=== PATIENT | female | born 1970 | race Caucasian/White ===

== ENCOUNTER → 2020-03-12 10:24 | Outpatient (BNVA) | payer MEDICAID, SELFPAY | PROVIDERS: PCP Physician Assistant; Visit Provider Family Medicine Adult Medicine | DX: M47.812 Spondylosis without myelopathy or radiculopathy, cervical region (principal); M51.37 Other intervertebral disc degeneration, lumbosacral region; Z79.899 Other long term (current) drug therapy; Z79.891 Long term (current) use of opiate analgesic | CPT/HCPCS: 99214 ==

== ENCOUNTER → 2020-04-03 11:29 | Outpatient (BNVA) | payer OTHER, SELFPAY | PROVIDERS: PCP Physician Assistant; Referring Provider Physician Assistant; Visit Provider Obstetrics & Gynecology | DX: N92.1 Excessive and frequent menstruation with irregular cycle (principal); D25.9 Leiomyoma of uterus, unspecified | CPT/HCPCS: 99212 ==

== ENCOUNTER → 2020-04-24 13:19 | Outpatient (BNVA) | payer OTHER, SELFPAY | PROVIDERS: PCP Physician Assistant; Referring Provider Physician Assistant; Visit Provider Nurse Practitioner | DX: Z76.89 Persons encountering health services in other specified circumstances (principal) ==

== ENCOUNTER → 2020-05-14 10:36 | Outpatient (BNVA) | payer OTHER, SELFPAY | PROVIDERS: PCP Physician Assistant; Visit Provider Family Medicine Adult Medicine | DX: M47.812 Spondylosis without myelopathy or radiculopathy, cervical region (principal); M51.37 Other intervertebral disc degeneration, lumbosacral region | CPT/HCPCS: 99212 ==

== ENCOUNTER → 2020-07-09 10:08 | Outpatient (BNVA) | payer SELFPAY | PROVIDERS: PCP Physician Assistant; Visit Provider Family Medicine Adult Medicine | DX: M51.37 Other intervertebral disc degeneration, lumbosacral region (principal); M47.812 Spondylosis without myelopathy or radiculopathy, cervical region | CPT/HCPCS: 99212 ==

== ENCOUNTER → 2020-09-03 13:50 | Outpatient (BNVA) | payer OTHER, SELFPAY | PROVIDERS: PCP Physician Assistant; Visit Provider Family Medicine Adult Medicine | DX: M47.812 Spondylosis without myelopathy or radiculopathy, cervical region (principal); M51.37 Other intervertebral disc degeneration, lumbosacral region | CPT/HCPCS: 99212 ==

== ENCOUNTER → 2020-10-29 13:00 | Outpatient (BNVA) | payer OTHER, SELFPAY | PROVIDERS: PCP Physician Assistant; Visit Provider Family Medicine Adult Medicine | DX: M51.37 Other intervertebral disc degeneration, lumbosacral region (principal); M47.812 Spondylosis without myelopathy or radiculopathy, cervical region; M17.10 Unilateral primary osteoarthritis, unspecified knee; Z79.899 Other long term (current) drug therapy | CPT/HCPCS: 99212 ==

== ENCOUNTER → 2020-11-26 12:55 | Outpatient (BNVA) | payer OTHER, SELFPAY | PROVIDERS: PCP Physician Assistant; Visit Provider Family Medicine Adult Medicine | DX: M51.37 Other intervertebral disc degeneration, lumbosacral region (principal); M47.812 Spondylosis without myelopathy or radiculopathy, cervical region; M17.10 Unilateral primary osteoarthritis, unspecified knee | CPT/HCPCS: 99212 ==

== ENCOUNTER 2020-12-24 11:55 | Outpatient (REF) | payer OTHER, SELFPAY ==
--- NOTE | ~2020-12-24 | MM_ITS ---
EXAMINATION: MM SCREENING DIGITAL BREAST TOMOSYNTHESIS, BILATERAL CLINICAL INFORMATION: Screening. Asymptomatic. The lifetime risk of breast cancer based on the Tyrer-Cuzick Model is 6%. COMPARISON: Mammography: 08/17/2019, 02/28/2015 TECHNIQUE: Digital breast tomosynthesis is performed in both the craniocaudal and mediolateral oblique views along with computer-aided detection (CAD). Synthesized 2D images are generated from the tomosynthesis. FINDINGS: There are scattered areas of fibroglandular density (ACR BI-RADS breast composition Category b). Breast parenchymal pattern is similar to prior studies. There is no interval mass or architectural abnormality. The axilla and skin contours are unremarkable. No abnormal calcifications on the right. The left breast has group of approximately 6 calcifications upper outer quadrant likely circularly arranged on MLO view which may suggest fibroadenomatous change. Patient will be recalled for additional magnification views to further characterize. MM/MM tomosynthesis screening BI IMPRESSION: 1. Left: Tight group calcifications left breast mid upper outer quadrant likely peripherally arranged which may suggest fibroadenomatous change. 2. Right: No mammographic evidence of malignancy. ASSESSMENT: BI-RADS 0: Incomplete - Need Additional Imaging Evaluation RECOMMENDATION: 1. Additional views of the left breast (magnification CC, magnification ML). 2. Radiology department staff will contact the patient for additional imaging. This patient's information was entered into a reminder system with a target due date for their next mammogram.
== END 2020-12-24 11:56 | disposition home or self-care (01) ==
LOC: HO.MAMMO 11:55
PROVIDERS: Visit Provider Physician Assistant
DX: Z12.31 Encounter for screening mammogram for malignant neoplasm of breast (principal)
CPT/HCPCS: 77063; 77067; 99212

== ENCOUNTER 2020-12-27 08:30 | Outpatient (REF) | payer OTHER, SELFPAY ==
--- NOTE | ~2020-12-27 | MM_ITS ---
EXAMINATION: MM DIAGNOSTIC DIGITAL MAMMOGRAPHY, LEFT CLINICAL INFORMATION: Recall from screening for tightly grouped calcifications mid left breast upper outer quadrant. COMPARISON: Mammography: 12/24/2020, 08/17/2019, 02/28/2015 TECHNIQUE: Digital mammography is performed in the following views: Magnification CC, magnification ML. FINDINGS: There are scattered areas of fibroglandular density (ACR BI-RADS breast composition Category b). The additional views confirm focal grouped calcifications mid 2:30 o'clock left breast, 10-15 in number. The calcifications vary in size and density. Stereotactic sampling is recommended. Results are discussed with the patient at time of visit. MM/MM added views LT IMPRESSION: Grouped calcifications mid 2:30 o'clock left breast representing change from prior exams. ASSESSMENT: BI-RADS 4: Suspicious (subcategory 4A: Low suspicion for malignancy) RECOMMENDATION: Stereotactic biopsy left breast. This patient's information was entered into a reminder system with a target due date for their next mammogram.
== END 2020-12-27 08:31 | disposition home or self-care (01) ==
LOC: HO.MAMMO 08:30
PROVIDERS: Visit Provider Physician Assistant
DX: R92.1 Mammographic calcification found on diagnostic imaging of breast (principal)
CPT/HCPCS: 77065

== ENCOUNTER → 2020-12-30 08:28 | Outpatient (BNVA) | payer OTHER, SELFPAY | PROVIDERS: PCP Physician Assistant; Referring Provider Physician Assistant; Visit Provider Surgery | DX: R92.1 Mammographic calcification found on diagnostic imaging of breast (principal) | CPT/HCPCS: 99202 ==

== ENCOUNTER 2021-01-07 10:03 | Outpatient (REF) | payer OTHER, SELFPAY ==
--- NOTE | ~2021-01-07 | MM_ITS ---
EXAMINATION: STEREOTACTIC TOMOSYNTHESIS-GUIDED VACUUM-ASSISTED BREAST BIOPSY, LEFT SPECIMEN RADIOGRAPH, LEFT POST PROCEDURE DIGITAL MAMMOGRAM, LEFT CLINICAL INFORMATION: Grouped calcifications left breast which vary in size and attenuation. COMPARISON: Mammography 12/27/2020, 11/24/2020, 08/17/2019. TECHNIQUE/PROCEDURE: Informed consent was obtained from the patient after discussion of the benefits, risks, and alternatives to biopsy today. Patient appeared to understand. Gave opportunity for questions. Patient signed consent form. BIOPSY TABLE: [employer] Affirm Prone Biopsy System. LESION: Tight group of calcifications mid 2:30 o'clock position. LOCAL ANESTHESIA: 7 mL 1% lidocaine; 10 mL 1% lidocaine with epinephrine. DERMATOTOMY: Single skin estevan dermatotomy performed. NEEDLE: Xetaliva 9-gauge vacuum assisted core biopsy device. APPROACH: lateral medial. TARGETING: Digital breast tomosynthesis used for targeting. CORES: 6. CLIP: [employer] Sec[employer] Buckle-shaped marker. SPECIMEN RADIOGRAPH: Specimen radiograph is taken in separate room using digital mammography. The index calcifications are in the excised cores. There are over 10 calcifications grouped in one of the cores. POST PROCEDURE UNILATERAL DIGITAL MAMMOGRAM: The post biopsy mammogram is performed in separate room using separate digital mammography equipment from the biopsy procedure. CC and ML views are obtained. There are scattered areas of fibroglandular density (breast composition category: b). Breast tissue composition borders on heterogeneously dense in the upper outer quadrant. The biopsy clip marker is in position upper outer quadrant. The index calcifications are no longer seen with certainty. There is no gross hematoma. The patient tolerated the procedure well. No immediate complications. Home instructions reviewed with the patient. Final pathology results are pending. MM/MM stereotactic biopsy LT IMPRESSION: 1. Digital tomosynthesis-guided core biopsy left breast with clip placement. 2. Specimen radiograph taken and post procedure mammogram. There is satisfactory positioning of the biopsy clip. 3. Final pathology results pending. An addendum report will be issued.
== END 2021-01-07 10:04 | disposition home or self-care (01) ==
LOC: HO.MAMMO 10:03
PROVIDERS: Visit Provider Surgery
DX: R92.1 Mammographic calcification found on diagnostic imaging of breast (principal)
CPT/HCPCS: 19081; 88305; A4648

== ENCOUNTER 2021-01-09 12:49 | Outpatient (REF) | payer OTHER, SELFPAY ==
[2021-01-09 14:17] LABS: Leukocytes Stool Qualitative NEGATIVE (NEGATIVE)
== END 2021-01-09 12:50 | disposition home or self-care (01) ==
LOC: HO.LNP 12:49
PROVIDERS: Visit Provider Nurse Practitioner Family
DX: R19.5 Other fecal abnormalities (principal)
CPT/HCPCS: 87045; 87046; 89055

== ENCOUNTER → 2021-01-13 09:06 | Outpatient (BNVA) | payer OTHER, SELFPAY | PROVIDERS: PCP Physician Assistant; Visit Provider Surgery | CPT/HCPCS: 99212 ==

== ENCOUNTER → 2021-01-16 12:57 | Outpatient (BNVA) | payer OTHER, SELFPAY | PROVIDERS: PCP Physician Assistant; Visit Provider Student in an Organized Health Care Education/Training Program | DX: R13.10 Dysphagia, unspecified (principal); R76.8 Other specified abnormal immunological findings in serum; I73.00 Raynaud's syndrome without gangrene | CPT/HCPCS: 99202 ==

== ENCOUNTER 2021-01-17 12:19 | Outpatient (REF) | payer OTHER, SELFPAY ==
[2021-01-17 13:22] LABS: MANUAL DIFF FLAG NO
[2021-01-17 13:28] LABS: Basophils Percent Auto 0.5 % (0-2); Eosinophils Absolute Auto 0.1 X10*3/uL (0.0-0.4); Eosinophils Percent Auto 3.2 % (0-4); Hematocrit 36.6 % (37-47); Hemoglobin 12.3 g/dl (12.0-16.0); Imm Gran Abs Auto 0.02 X10*3/uL (0.00-0.03); Imm Gran Pct Auto 0.5 % (0.0-0.4); Lymphocytes Absolute Auto 1.6 X10*3/uL (1.2-4.9); Lymphocytes Percent Auto 36.3 % (20-40); Mean Corpuscular HGB Conc 33.6 g/dl (31.0-35.0); Mean Corpuscular Hemoglobin 31.8 pg (27.0-33.0); Mean Corpuscular Volume 94.6 fL (80-98); Mean Platelet Volume 9.9 fL (9.4-12.3); Monocytes Absolute Auto 0.3 X10*3/uL (0.1-1.2); Monocytes Percent Auto 7.4 % (2-11); Neutrophils Absolute Auto 2.3 X10*3/uL (2.0-8.3); Neutrophils Percent Auto 52.1 % (45-73); Platelet Count 207 X10*3/uL (160-400); Red Blood Count 3.87 X10*6/uL (4.20-5.50); Red Cell Distribution Width 12.9 % (11.0-16.0); White Blood Count 4.3 X10*3/uL (4.8-10.8)
[2021-01-17 13:39] LABS: Glucose Urine UA NEG (NEG); Leukocyte Esterase Urine NEG (NEG); Nitrite Urine NEG (NEG); PH 5.5 (5.0-8.0); Specific Gravity - Urine <= 1.005 (1.005-1.025); Urine Blood NEG (NEG); Urine Ketones NEG (NEG); Urine Protein NEG (NEG-TRACE)
[2021-01-17 13:44] LABS: Appearance Urine CLEAR; Color Urine YELLOW
[2021-01-17 13:53] LABS: Alanine Aminotransferase 18 U/L (0-31); Albumin Level 4.3 g/dL (3.5-5.0); Alkaline Phosphatase 65 U/L (39-117); Anion Gap 13 (12-20); Aspartate Amino Transferase 26 U/L (5-31); Bilirubin Total 0.5 mg/dL (0.0-1.0); Blood Urea Nitrogen 17 mg/dL (9-16); C Reactive Protein 0.15 mg/dL (< or = 0.50); Calcium 9.8 mg/dL (8.4-10.2); Carbon Dioxide 27 mmol/L (22-29); Chloride 108 mmol/L (96-108); Estimated Glomerular Filt Rate > 60; Glucose Random 71 mg/dL (60-115); Potassium 4.7 mmol/L (3.3-5.1); Sodium 143 mmol/L (135-145); Total Protein 6.8 g/dL (6.5-8.0)
[2021-01-17 13:55] LABS: RBC Urine 0-2 /HPF (0); Squamous Epithelial Cell Urine TRACE /LPF; WBC Urine 0-2 /HPF (0-4)
[2021-01-17 14:22] LABS: Erythrocyte Sedimentation Rate 9 MM/HR (0-20)
[2021-01-18 10:36] LABS: Anti DNA DS Antibody 4 IU/mL; Antibody to SS-A Antigen <1.0 NEG AI (<1.0 NEG); Antibody to SS-B Antigen <1.0 NEG AI (<1.0 NEG); SM/Ribonucleoprotein Ab <1.0 NEG AI (<1.0 NEG); Scleroderma 70 Antibody <1.0 NEG AI (<1.0 NEG); Smith Protein <1.0 NEG AI (<1.0 NEG)
[2021-01-18 18:51] LABS: Beta-2 Microglobulin, Serum 2.31 mg/L (< OR = 2.51)
[2021-01-20 13:25] LABS: PTT (LAC) Screen 33 sec (< OR = 40)
[2021-01-20 13:36] LABS: Complement C3 94 mg/dL (83-193)
[2021-01-20 14:32] LABS: Cardiolipin IgG Ab <2.0 GPL-U/mL; Cardiolipin IgM Ab 3.7 MPL-U/mL
[2021-01-21 16:27] LABS: Cyclic Citrullinated Peptide <16 UNITS
== END 2021-01-17 12:20 | disposition home or self-care (01) ==
LOC: HO.LAB 12:19
PROVIDERS: PCP Physician Assistant; Visit Provider Student in an Organized Health Care Education/Training Program
DX: R76.8 Other specified abnormal immunological findings in serum (principal)
CPT/HCPCS: 36415; 80053; 81001; 82232; 85025; 85597; 85613; 85652; 85730; 86140; 86147; 86160; 86200; 86225; 86235

== ENCOUNTER → 2021-01-23 09:59 | Outpatient (BNVA) | payer OTHER, SELFPAY | PROVIDERS: PCP Physician Assistant; Visit Provider Family Medicine Adult Medicine | DX: M51.37 Other intervertebral disc degeneration, lumbosacral region (principal); M47.812 Spondylosis without myelopathy or radiculopathy, cervical region; M17.10 Unilateral primary osteoarthritis, unspecified knee; Z87.891 Personal history of nicotine dependence | CPT/HCPCS: 99212 ==

== ENCOUNTER 2021-01-24 09:54 | Outpatient (REF) | payer OTHER, SELFPAY ==
--- NOTE | ~2021-01-24 | XR_ITS ---
EXAMINATION: XR RIGHT HAND AND RIGHT WRIST XR LEFT HAND AND LEFT WRIST CLINICAL INFORMATION: Hand and wrist pain. COMPARISON: None TECHNIQUE: 4 views right hand and wrist, 4 views left hand and wrist. FINDINGS: RIGHT: The wrist appears normal without fractures or degenerative changes. The hand appears unremarkable aside from degenerative changes at the 1st metacarpal phalangeal joint and the presence of a cystic area at the base of the distal 1st phalanx. LEFT: The wrist appears normal without fractures or degenerative changes. The hand appears unremarkable aside from the presence of a cyst at the base of the distal phalanx of the 1st digit similar to that noted on the right. XR/XR hand wrist LT IMPRESSION: No significant pathology seen aside from some mild degenerative changes at the 1st metacarpal phalangeal joint of the right hand.
--- NOTE | ~2021-01-24 | XR_ITS ---
EXAMINATION: XR RIGHT HAND AND RIGHT WRIST XR LEFT HAND AND LEFT WRIST CLINICAL INFORMATION: Hand and wrist pain. COMPARISON: None TECHNIQUE: 4 views right hand and wrist, 4 views left hand and wrist. FINDINGS: RIGHT: The wrist appears normal without fractures or degenerative changes. The hand appears unremarkable aside from degenerative changes at the 1st metacarpal phalangeal joint and the presence of a cystic area at the base of the distal 1st phalanx. LEFT: The wrist appears normal without fractures or degenerative changes. The hand appears unremarkable aside from the presence of a cyst at the base of the distal phalanx of the 1st digit similar to that noted on the right. XR/XR hand wrist RT IMPRESSION: No significant pathology seen aside from some mild degenerative changes at the 1st metacarpal phalangeal joint of the right hand.
== END 2021-01-24 09:55 | disposition home or self-care (01) ==
LOC: HO.XRAY 09:54
PROVIDERS: PCP Physician Assistant; Visit Provider Physician Assistant
DX: M25.50 Pain in unspecified joint (principal)
CPT/HCPCS: 73110; 73130

== ENCOUNTER → 2021-01-28 07:38 | Outpatient (REF) | payer OTHER, SELFPAY ==
--- NOTE | ~2021-01-28 | XR_ITS ---
EXAMINATION: XR HIP, LEFT CLINICAL INFORMATION: Other specified abnormal immunologic findings. COMPARISON: None TECHNIQUE: AP and frog lateral views of the left hip. FINDINGS: There is no fracture or malalignment. There is minor spurring of the inferomedial left femoral head and superolateral acetabulum. There is no significant joint space narrowing. There is a small rounded lucency with sclerotic margin in the superolateral femoral neck which may represent a normal variant femoral herniation pit. XR/XR hip LT min 2V IMPRESSION: Minor degenerative changes.
--- NOTE | 2021-01-28 07:45 | CA_ITS ---
Transthoracic Echocardiogram Patient (Last, First, Middle): Berenice Berman, Gender: Female Date of : 1970 Age: 50 Procedure Date: 01/28/2021 Procedure Type: Transthoracic Echocardiogram Location: OP Height: 167.64 cm Weight: 63.5 kg BSA: 1.72 m2 Heart Rate: bpm BP: 118 / 60 mmHg Coil Strapper: Referring MD: Margarito Smith MD Quality Compliance Manager: Tomi Otero MD Symptoms: R76.8 - Other specified abnormal immunological findings i... Study Quality: Good ECG Rhythm: Sinus Conclusions: - Normal study Findings Left Ventricle Normal left ventricular size, thickness, and systolic function. The visually estimated ejection fraction is between 60-65%. There is no evidence of regional wall motion abnormalities. Spectral Doppler is indicative of a normal filling pattern. Right Ventricle Normal right ventricular cavity size and systolic function. Atria Both atria are normal in size. There is no evidence of interatrial shunt. Aortic Valve Normal aortic valve structure and function. There is no aortic valve stenosis. There is no aortic valve regurgitation. Mitral Valve Normal mitral valve structure and function. There is trace mitral valve regurgitation. There is no mitral valve stenosis. Pulmonic Valve The pulmonic valve is likely normal. Tricuspid Valve Normal tricuspid valve structure. There is trace tricuspid valve regurgitation. The right ventricular systolic pressure is normal. The right ventricular systolic pressure is 17 mmHg. There is no evidence of pulmonary hypertension. Great Vessels All visible segments of the aorta are normal in size. The pulmonary artery was not well visualized. Venous The inferior vena cava is normal in size and collapses greater than 50% with inspiration. Pericardium/Pleural There is no evidence of pericardial effusion. Prior Study Comparison No prior study available for comparison. Measurements 2D Linear Measurements IVSd: 0.89 0.6-0.9/0.6-1.0 cm LVIDd: 4.57 3.9-5.3/4.2-5.9 cm LVIDd Index: 2.66 2.4-3.2/2.2-3.1 cm/m2 LVIDs: 2.86 2.0-3.6 cm LVPWd: 1.06 0.7-1.1 cm Ao Root: 2.80 2.1-3.5 cm LA Diam: 3.00 2.7-3.8/3.0-4.0 cm LAIDs Index: 1.74 1.5-2.3 cm/m2 LV Mass: 188.99 67-162/88-224 g LV Mass Index: 109.88 43-95/49-115 g/m2 LVOT Diam: 2.10 3.0+(-)1.3 cm Mitral Valve MV Pk E: 0.72 MV PK A: 0.55 MV Decel Time: 179.00 E/A: 1.30 E'Lateral: 14.60 E'Medial: 9.25 E/E' Med: 7.70 E/E' Lat: 4.90 PHT: 53.00 MVA PHT: 4.15 Decel Yates: 3.99 Aortic Valve AoV Pk Jose A: 1.16 AoV Mn Jose A: 0.83 AoV VTI: 0.34 AoV Pk Grad: 5.00 Aov Mn Grad: 3.00 GAYLE Cont.VTI: 2.39 LVOT LVOT Pk Jose A: 0.89 LVOT Mn Jose A: 0.52 LVOT VTI: 0.23 LVOT Pk Grad: 3.00 LVOT Mn Grad: 1.00 LVOT Diam: 2.10 LVOT Area: 3.46 Diastolic Function MV Pk E: 0.72 MV Pk A: 0.55 E/A: 1.30 E'Medial: 9.25 E/E' Med: 7.70 E' Laterial: 14.60 E/E' Lat: 4.90 Tricuspid Valve TR Pk Jose A: 1.85 TR Pk Grad: 14.00 RA Press: 3.00 RVSP: 17.00 Great Vessels Aorta Ao Root-2D: 2.80 2.0-3.7 cm Ao Asc: 2.90 2.1-3.4 cm Pulmonary Valve PV Pk Jose A: 0.79 Peak PV Grad: 2.00 Updated in Other Vendor System with Status of Final Tomi Otero MD electronically signed on 01/28/2021 12:04:25 PM with status of Final
== END ==
LOC: HO.CARD 07:38
PROVIDERS: PCP Internal Medicine; Visit Provider Student in an Organized Health Care Education/Training Program
DX: R76.8 Other specified abnormal immunological findings in serum (principal)
CPT/HCPCS: 73502; 93306

== ENCOUNTER → 2021-02-04 11:00 | Outpatient (BNVA) | payer OTHER, SELFPAY | PROVIDERS: PCP Physician Assistant; Visit Provider Student in an Organized Health Care Education/Training Program ==

== ENCOUNTER → 2021-02-20 10:31 | Outpatient (BNVA) | payer OTHER, SELFPAY | PROVIDERS: Visit Provider Family Medicine Adult Medicine | DX: Z51.81 Encounter for therapeutic drug level monitoring (principal); M51.37 Other intervertebral disc degeneration, lumbosacral region; M47.812 Spondylosis without myelopathy or radiculopathy, cervical region | CPT/HCPCS: 99212 ==

== ENCOUNTER → 2021-03-20 10:55 | Outpatient (BNVA) | payer OTHER, SELFPAY | PROVIDERS: Visit Provider Family Medicine Adult Medicine | DX: Z51.81 Encounter for therapeutic drug level monitoring (principal); M51.37 Other intervertebral disc degeneration, lumbosacral region; M47.812 Spondylosis without myelopathy or radiculopathy, cervical region | CPT/HCPCS: 99212 ==

== ENCOUNTER → 2021-04-17 09:38 | Outpatient (BNVA) | payer OTHER, SELFPAY | PROVIDERS: Visit Provider Family Medicine Adult Medicine | DX: Z51.81 Encounter for therapeutic drug level monitoring (principal); M51.37 Other intervertebral disc degeneration, lumbosacral region; M47.812 Spondylosis without myelopathy or radiculopathy, cervical region | CPT/HCPCS: 99212 ==

== ENCOUNTER 2021-07-03 07:16 | Outpatient (REF) | payer OTHER, SELFPAY ==
[2021-07-03 08:58] LABS: C Reactive Protein 1.29 mg/dL (< or = 0.50)
== END 2021-07-03 07:17 | disposition home or self-care (01) ==
LOC: HO.LAB 07:16
PROVIDERS: PCP Physician Assistant; Referring Provider Physician Assistant; Visit Provider Nurse Practitioner
DX: R19.5 Other fecal abnormalities (principal); R19.7 Diarrhea, unspecified; K59.00 Constipation, unspecified; R13.10 Dysphagia, unspecified; F11.20 Opioid dependence, uncomplicated
CPT/HCPCS: 36415; 86140; 99212

== ENCOUNTER → 2021-07-10 11:14 | Outpatient (BNVA) | payer OTHER, SELFPAY | PROVIDERS: Visit Provider Nurse Practitioner Psychiatric/Mental Health | DX: Z51.81 Encounter for therapeutic drug level monitoring (principal); F11.20 Opioid dependence, uncomplicated | CPT/HCPCS: 80305; 99212 ==

== ENCOUNTER → 2021-08-14 11:49 | Outpatient (BNVA) | payer BC, OTHER, SELFPAY | PROVIDERS: Visit Provider Nurse Practitioner Psychiatric/Mental Health | DX: Z51.81 Encounter for therapeutic drug level monitoring (principal); M51.37 Other intervertebral disc degeneration, lumbosacral region; M47.812 Spondylosis without myelopathy or radiculopathy, cervical region; F11.20 Opioid dependence, uncomplicated | CPT/HCPCS: 80305; 99212 ==

== ENCOUNTER → 2021-09-11 15:52 | Outpatient (BNVA) | payer OTHER, SELFPAY | PROVIDERS: Visit Provider Nurse Practitioner Psychiatric/Mental Health | DX: Z51.81 Encounter for therapeutic drug level monitoring (principal); F11.20 Opioid dependence, uncomplicated | CPT/HCPCS: 99212 ==

== ENCOUNTER → 2021-11-06 09:02 | Outpatient (BNVA) | payer OTHER, SELFPAY | PROVIDERS: Visit Provider Nurse Practitioner Psychiatric/Mental Health | DX: F11.20 Opioid dependence, uncomplicated (principal) | CPT/HCPCS: 80305; 99212 ==

== ENCOUNTER → 2021-11-17 08:19 | Outpatient (BNVA) | payer OTHER, BC, SELFPAY | PROVIDERS: PCP Physician Assistant; Visit Provider Internal Medicine Rheumatology | DX: M17.0 Bilateral primary osteoarthritis of knee (principal); M16.9 Osteoarthritis of hip, unspecified; I73.00 Raynaud's syndrome without gangrene; R76.8 Other specified abnormal immunological findings in serum; Z79.1 Long term (current) use of non-steroidal anti-inflammatories (NSAID) | CPT/HCPCS: 99212 ==

== ENCOUNTER → 2022-01-27 10:15 | Outpatient (BNVA) | payer OTHER, BC, SELFPAY | PROVIDERS: PCP Physician Assistant; Visit Provider Nurse Practitioner Psychiatric/Mental Health | DX: Z51.81 Encounter for therapeutic drug level monitoring (principal); F11.20 Opioid dependence, uncomplicated | CPT/HCPCS: 99212 ==

== ENCOUNTER → 2022-03-17 10:13 | Outpatient (BNVA) | payer BC, OTHER, SELFPAY | PROVIDERS: PCP Physician Assistant; Visit Provider Nurse Practitioner Psychiatric/Mental Health | DX: Z51.81 Encounter for therapeutic drug level monitoring (principal); F11.20 Opioid dependence, uncomplicated | CPT/HCPCS: 80305; 99212 ==

== ENCOUNTER → 2022-05-19 10:03 | Outpatient (BNVA) | payer BC, OTHER, SELFPAY | PROVIDERS: PCP Physician Assistant; Visit Provider Nurse Practitioner Psychiatric/Mental Health | DX: Z51.81 Encounter for therapeutic drug level monitoring (principal); F11.20 Opioid dependence, uncomplicated | CPT/HCPCS: 80305 ==

== ENCOUNTER → 2022-07-14 08:59 | Outpatient (BNVA) | payer OTHER, SELFPAY | PROVIDERS: PCP Physician Assistant; Visit Provider Nurse Practitioner Psychiatric/Mental Health | DX: Z51.81 Encounter for therapeutic drug level monitoring (principal); F11.20 Opioid dependence, uncomplicated; M51.37 Other intervertebral disc degeneration, lumbosacral region; M47.812 Spondylosis without myelopathy or radiculopathy, cervical region ==

== ENCOUNTER → 2022-07-15 08:59 | Outpatient (BNVA) | payer OTHER, SELFPAY | PROVIDERS: PCP Physician Assistant; Visit Provider Nurse Practitioner Psychiatric/Mental Health | DX: F11.20 Opioid dependence, uncomplicated (principal); M51.37 Other intervertebral disc degeneration, lumbosacral region; M47.812 Spondylosis without myelopathy or radiculopathy, cervical region ==

== ENCOUNTER → 2022-09-09 12:52 | Outpatient (BNVA) | payer BC, OTHER, SELFPAY | PROVIDERS: PCP Physician Assistant; Visit Provider Nurse Practitioner Psychiatric/Mental Health | DX: Z51.81 Encounter for therapeutic drug level monitoring (principal); F11.20 Opioid dependence, uncomplicated | CPT/HCPCS: 99212 ==

== ENCOUNTER → 2022-11-03 12:57 | Outpatient (BNVA) | payer BC, OTHER, SELFPAY | PROVIDERS: PCP Physician Assistant; Visit Provider Nurse Practitioner Psychiatric/Mental Health | DX: Z51.81 Encounter for therapeutic drug level monitoring (principal); F11.20 Opioid dependence, uncomplicated | CPT/HCPCS: 80305 ==

== ENCOUNTER 2023-01-05 10:29 | Outpatient (AMB) | payer BC, OTHER, SELFPAY ==
--- NOTE | 2023-01-05 10:35 | MHC.OFFVIS ---
Intake Vital Signs 01/05/23 10:39 BP 122/80 Blood Pressure Location Lt radial Position Sitting Pulse 72 Pulse Source Pulse Oximeter Pulse Oximetry (%) 98 Oxygen Delivery Method Room Air Intake Visit Reasons: MAT Visit Intake Note: the patient presents for a mat visit Failure Analysis Technician Required: No Allergies sumatriptan Adverse Reaction (Unknown, Verified 01/05/23 10:40) Nausea codeine Adverse Reaction (Verified 01/05/23 10:40) Nausea Do you need a note to return to daycare/school/sports/work: No HPI MAT Visit HPI Details Patient presents for follow up Currently prescribed Suboxone 8mg QD back to work, knee pain has improved however she is now experiencing hip pain doing well with suboxone, no concerns at this time [facility], [facility] Medical History Abdominal bloating Breast calcification, left Collapse, lung Pneumothorax Surgical History H/O breast biopsy History of lumpectomy of right breast History of pneumonectomy History of tooth extraction History of total knee arthroplasty Family History Mother Depression COPD (chronic obstructive pulmonary disease) Lung cancer Father No problems noted. 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 Cognitive needs: No Hearing needs: No Vision needs: No Female Reproductive History Menstrual Age of Menarche: 13 Review of Systems Const Reports as per HPI and Reports no additional complaints Physical Exam Vital Signs: Last Vital Signs Pulse 72 01/05/23 10:39 BP 122/80 01/05/23 10:39 Pulse Ox 98 01/05/23 10:39 Oxygen Delivery Method Room Air 01/05/23 10:39 Const General: cooperative, healthy appearing and no acute distress Nutritional Appearance: average body habitus Orientation/consciousness: patient oriented x3 Limitations: no limitations Neuro General: patient oriented x3 Extrem General: Yes normal gait Right lower extremity: knee (right knee slightly swollen) Psych Appearance: well kempt Mental Status: mental status grossly normal Speech and movement: Normal speech and movement present Affect: normal affect Attitude: cooperative Thought process: Normal thought process present Thought content: Normal thought content present Insight: Good insight present (Psych) Judgement: Good judgement present (Psych) Assessment & Plan Assessment & Plan (1) Opioid dependence on agonist therapy: Code(s): F11.20 - Opioid dependence, uncomplicated Plan: follow up 2 months refill to be sent later this month as she recently picked up Coding Level of Care Code Est Pt Level 3 (84683) Diagnoses Opioid dependence on agonist therapy F11.20
[2023-01-05 10:39] VITALS: BP 122/80; PULSE 72; O2SAT 98
== END 2023-01-05 11:07 | disposition home or self-care (01) ==
LOC: HO.HCC 10:29
PROVIDERS: PCP Physician Assistant; Visit Provider Nurse Practitioner Psychiatric/Mental Health
DX: F11.20 Opioid dependence, uncomplicated (principal)
CPT/HCPCS: 99213

== ENCOUNTER → 2023-01-05 10:29 | Outpatient (BNVA) | payer BC, OTHER, SELFPAY | PROVIDERS: PCP Physician Assistant; Visit Provider Nurse Practitioner Psychiatric/Mental Health | DX: Z51.81 Encounter for therapeutic drug level monitoring (principal); F11.20 Opioid dependence, uncomplicated; M51.37 Other intervertebral disc degeneration, lumbosacral region; M47.812 Spondylosis without myelopathy or radiculopathy, cervical region ==

== ENCOUNTER 2023-03-16 11:01 | Outpatient (AMB) | payer BC, OTHER, SELFPAY ==
[2023-03-16 11:06] VITALS: BP 110/72; PULSE 87; O2SAT 97
--- NOTE | 2023-03-16 11:06 | MHC.OFFVIS ---
Intake Vital Signs 03/16/23 11:06 BP 110/72 Blood Pressure Location Lt radial Position Sitting Pulse 87 Pulse Source Pulse Oximeter Pulse Oximetry (%) 97 Oxygen Delivery Method Room Air Intake Visit Reasons: MAT Visit Intake Note: the patient presents for a mat visit Hood Maker Required: No Allergies sumatriptan Adverse Reaction (Unknown, Verified 01/05/23 10:40) Nausea codeine Adverse Reaction (Verified 01/05/23 10:40) Nausea Is last menstrual period known: No HPI MAT Visit HPI Details Patient presents for follow up Currently prescribed Suboxone 8mg Daily Doing well with this dose No questions or concerns at this time [facility] Medical History Abdominal bloating Breast calcification, left Collapse, lung Pneumothorax Surgical History H/O breast biopsy History of lumpectomy of right breast History of pneumonectomy History of tooth extraction History of total knee arthroplasty Family History Mother Depression COPD (chronic obstructive pulmonary disease) Lung cancer Father No problems noted. 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 Cognitive needs: No Hearing needs: No Vision needs: No Female Reproductive History Menstrual Age of Menarche: 13 Review of Systems Const Reports as per HPI and Reports no additional complaints Physical Exam Vital Signs: Last Vital Signs Pulse 87 03/16/23 11:06 BP 110/72 03/16/23 11:06 Pulse Ox 97 03/16/23 11:06 Oxygen Delivery Method Room Air 03/16/23 11:06 Const General: cooperative, healthy appearing and no acute distress Nutritional Appearance: average body habitus Orientation/consciousness: patient oriented x3 Limitations: no limitations Neuro General: patient oriented x3 Extrem General: Yes normal gait Right lower extremity: knee (right knee slightly swollen) Psych Appearance: well kempt Mental Status: mental status grossly normal Speech and movement: Normal speech and movement present Affect: normal affect Attitude: cooperative Thought process: Normal thought process present Thought content: Normal thought content present Insight: Good insight present (Psych) Judgement: Good judgement present (Psych) Assessment & Plan Assessment & Plan (1) Opioid dependence on agonist therapy: Code(s): F11.20 - Opioid dependence, uncomplicated Plan: follow up 2 months continue suboxone at current dose Coding Level of Care Code Est Pt Level 3 (64454) Diagnoses Opioid dependence on agonist therapy F11.20
== END 2023-03-16 11:38 | disposition home or self-care (01) ==
PROVIDERS: PCP Physician Assistant; Visit Provider Nurse Practitioner Psychiatric/Mental Health
DX: F11.20 Opioid dependence, uncomplicated (principal)
CPT/HCPCS: 99213

== ENCOUNTER → 2023-03-16 11:01 | Outpatient (BNVA) | payer BC, OTHER, SELFPAY | PROVIDERS: PCP Physician Assistant; Visit Provider Nurse Practitioner Psychiatric/Mental Health | DX: Z51.81 Encounter for therapeutic drug level monitoring (principal); F11.20 Opioid dependence, uncomplicated; M51.37 Other intervertebral disc degeneration, lumbosacral region; M47.812 Spondylosis without myelopathy or radiculopathy, cervical region ==

== ENCOUNTER 2023-06-01 10:08 | Outpatient (AMB) | payer BC, OTHER, SELFPAY ==
[2023-06-01 10:00] VITALS: BP 130/75; PULSE 77; RESP 20; O2SAT 97
--- NOTE | 2023-06-01 10:19 | MHC.AM.SUB ---
Intake Vital Signs 06/01/23 10:00 BP 130/75 Blood Pressure Location Lt brachial Position Sitting Respiration 20 Pulse 77 Pulse Source Pulse Oximeter Pulse Oximetry (%) 97 Oxygen Delivery Method Room Air Intake Visit Reasons: MAT Visit Allergies sumatriptan Adverse Reaction (Unknown, Verified 01/05/23 10:40) Nausea codeine Adverse Reaction (Verified 01/05/23 10:40) Nausea HPI MAT Visit HPI Details Patient presents for follow up Doing well with current suboxone dose. Would like to start seeing a therapist Reporting depressive sx. Several social stressors PFSH Medical History Abdominal bloating Breast calcification, left Collapse, lung Pneumothorax Surgical History H/O breast biopsy History of lumpectomy of right breast History of pneumonectomy History of tooth extraction History of total knee arthroplasty Family History Mother Depression COPD (chronic obstructive pulmonary disease) Lung cancer Father No problems noted. 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 Cognitive needs: No Hearing needs: No Vision needs: No Female Reproductive History Menstrual Age of Menarche: 13 Review of Systems Const Reports as per HPI Psych Reports depression and Reports anhedonia Physical Exam Vital Signs: Last Vital Signs Pulse 77 06/01/23 10:00 Resp 20 06/01/23 10:00 BP 130/75 06/01/23 10:00 Pulse Ox 97 06/01/23 10:00 Oxygen Delivery Method Room Air 06/01/23 10:00 Const General: cooperative, healthy appearing and no acute distress Nutritional Appearance: average body habitus Orientation/consciousness: patient oriented x3 Limitations: no limitations Neuro General: patient oriented x3 Extrem General: Yes normal gait Right lower extremity: knee (right knee slightly swollen) Psych Appearance: well kempt Mental Status: mental status grossly normal Speech and movement: Normal speech and movement present Affect: Anxious affect present and Depressed mood present Attitude: cooperative Thought process: Normal thought process present Thought content: Normal thought content present Insight: Good insight present (Psych) Judgement: Good judgement present (Psych) Assessment & Plan Assessment & Plan (1) Opioid dependence on agonist therapy: Code(s): F11.20 - Opioid dependence, uncomplicated Plan: continue suboxone at current dose referral sent to [facility] consider antidepressant at next visit Orders: Referrals Counseling Referral F11.20 - Opioid dependence, uncomplicated Coding Level of Care Code Est Pt Level 3 (28631) Diagnoses Opioid dependence on agonist therapy F11.20
== END 2023-06-01 10:55 | disposition home or self-care (01) ==
PROVIDERS: PCP Physician Assistant; Visit Provider Nurse Practitioner Psychiatric/Mental Health
DX: F11.20 Opioid dependence, uncomplicated (principal)
CPT/HCPCS: 99213

== ENCOUNTER → 2023-06-01 10:08 | Outpatient (BNVA) | payer BC, OTHER, SELFPAY | PROVIDERS: PCP Physician Assistant; Visit Provider Nurse Practitioner Psychiatric/Mental Health ==

== ENCOUNTER 2023-07-27 10:21 | Outpatient (AMB) | payer BC, OTHER, SELFPAY ==
[2023-07-27 10:26] VITALS: BP 110/60; PULSE 65; O2SAT 96
--- NOTE | 2023-07-27 10:26 | A.OFFVISCC_ITS ---
Intake Vital Signs 07/27/23 10:26 BP 110/60 Blood Pressure Location Rt brachial Position Sitting Pulse 65 Pulse Source Pulse Oximeter Pulse Oximetry (%) 96 Intake Visit Reasons: MAT Visit Allergies sumatriptan Adverse Reaction (Unknown, Verified 01/05/23 10:40) Nausea codeine Adverse Reaction (Verified 01/05/23 10:40) Nausea HPI MAT Visit HPI Details Patient presents for follow up Currently prescribed Suboxone 8mg daily Doing well with this dose Started therapy yesterday Will go back on Wednesday for follow up appt Discussed mood--patient reporting sadness, low motivation, anhedonia. Discussed medication trial. Patient declines [facility] Medical History Abdominal bloating Breast calcification, left Collapse, lung Pneumothorax Surgical History H/O breast biopsy History of lumpectomy of right breast History of pneumonectomy History of tooth extraction History of total knee arthroplasty Family History Mother Depression COPD (chronic obstructive pulmonary disease) Lung cancer Father No problems noted. 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 Cognitive needs: No Hearing needs: No Vision needs: No Female Reproductive History Menstrual Age of Menarche: 13 Review of Systems Const Reports as per HPI Physical Exam Vital Signs: Last Vital Signs Pulse 65 07/27/23 10:26 BP 110/60 07/27/23 10:26 Pulse Ox 96 07/27/23 10:26 Const General: cooperative, healthy appearing and no acute distress Nutritional Appearance: average body habitus Orientation/consciousness: patient oriented x3 Limitations: no limitations Neuro General: patient oriented x3 Extrem General: Yes normal gait Right lower extremity: knee (right knee slightly swollen) Psych Appearance: well kempt Mental Status: mental status grossly normal Speech and movement: Normal speech and movement present Affect: Anxious affect present and Depressed mood present Attitude: cooperative Thought process: Normal thought process present Thought content: Normal thought content present Insight: Good insight present (Psych) Judgement: Good judgement present (Psych) Results AMB 14 Panel Urine Drug Screen Urine Marijuana (THC) Positive Last Edit by Rupali Neri RN on 07/27/23 10:30 Urine Cocaine Negative Last Edit by Rupali Neri RN on 07/27/23 10:30 Urine Morphine Negative Last Edit by Rupali Neri RN on 07/27/23 10:30 Urine Methamphetamine Negative Last Edit by uRpali Neri RN on 07/27/23 10:30 Urine Amphetamine Negative Last Edit by Rupali Neri RN on 07/27/23 10:30 Urine Benzodiazepine Negative Last Edit by Rupali Neri RN on 07/27/23 10 :30 Urine Barbiturates Negative Last Edit by Rupali Neri RN on 07/27/23 10:3 0 Urine Methadone Negative Last Edit by Rupali Neri RN on 07/27/23 10:30 Urine Buprenorphine Positive Last Edit by Rupali Neri RN on 07/27/23 10: 30 Urine Tricyclic Antidepressant Positive Last Edit by Rupali Neri RN on 07/27/23 10:30 Urine MDMA Negative Last Edit by Rupali Neri RN on 07/27/23 10:30 Urine Oxycodone Negative Last Edit by Rupali Neri RN on 07/27/23 10:30 Urine Phencyclidine Negative Last Edit by Rupali Neri RN on 07/27/23 10: 30 Urine Propoxyphene Negative Last Edit by Rupali Neri RN on 07/27/23 10:3 0 Results Reviewed Results Reviewed: Laboratory Last Values POC Urine Buprenorphine Positive 07/27/23 10:27 POC Urine Morphine Negative 07/27/23 10:27 POC Urine Oxycodone Negative 07/27/23 10:27 POC Urine Methadone Negative 07/27/23 10:27 POC Urine Propoxyphene Negative 07/27/23 10:27 POC Urine Barbiturates Negative 07/27/23 10:27 POC U Tricyclic Antidpr Positive 07/27/23 10:27 POC Urine PCP Negative 07/27/23 10:27 POC Ur Amphetamines Negative 07/27/23 10:27 POC Ur Methamphetamine Negative 07/27/23 10:27 POC Urine MDMA Negative 07/27/23 10:27 POC Ur Benzodiazepine Negative 07/27/23 10:27 POC Urine Cocaine Negative 07/27/23 10:27 POC Ur Marijuana (THC) Positive 07/27/23 10:27 Assessment & Plan Assessment & Plan (1) Opioid dependence on agonist therapy: Code(s): F11.20 - Opioid dependence, uncomplicated Plan: * continue suboxone at current dose * follow up 2 months Orders: Orders AMB 14 Panel Urine Drug Screen Today F11.20 - Opioid dependence, uncomplicated Coding Level of Care Code Est Pt Level 3 (89345) Diagnoses Opioid dependence on agonist therapy F11.20
== END 2023-07-27 11:05 | disposition home or self-care (01) ==
LOC: HO.HCC 10:21
PROVIDERS: PCP Physician Assistant; Visit Provider Nurse Practitioner Psychiatric/Mental Health
DX: F11.20 Opioid dependence, uncomplicated (principal)
CPT/HCPCS: 99213

== ENCOUNTER → 2023-07-27 10:21 | Outpatient (BNVA) | payer BC, OTHER, SELFPAY | PROVIDERS: PCP Physician Assistant; Visit Provider Nurse Practitioner Psychiatric/Mental Health | DX: F11.20 Opioid dependence, uncomplicated (principal) | CPT/HCPCS: 80305 ==

== ENCOUNTER 2023-08-23 10:12 | Outpatient (AMB) | payer BC, OTHER, SELFPAY ==
--- NOTE | 2023-08-23 10:16 | A.OFFPC_ITS ---
Vital Signs 08/23/23 10:20 Height 5 ft 6 in Weight 131 lb 4 oz BMI 21.2 BP 114/76 Blood Pressure Location Lt brachial Position Sitting Respiration 17 Pulse 75 Pulse Source Pulse Oximeter Pulse Oximetry (%) 98 Oxygen Delivery Method Room Air Intake Visit Reasons: AE Intake Note: Patient is here today for a physical. Blender Snuff Required: No Accompanied by: Self / Same As Patient Is last menstrual period known: No Post menopausal: Yes Patient : No Allergies sumatriptan Adverse Reaction (Unknown, Verified 08/23/23 10:33) Nausea codeine Adverse Reaction (Verified 08/23/23 10:33) Nausea Medication List - Last Reconciled 08/23/23 by Michael Galarza PA-C acetaminophen ER (Tylenol Arthritis Pain) 1,300 mg PO Q12H buprenorphine-naloxone 8-2 mg (Suboxone) 1 film sublingual DAILY 30 days cetirizine 10 mg PO DAILY clonidine HCl 0.1 mg PO BEDTIME cyclobenzaprine 10 mg PO TID PRN docusate sodium 100 mg PO Q12H gabapentin 300 mg PO BEDTIME leg brace (Knee Support Brace) As directed multivitamin 1 tab PO DAILY polyethylene glycol 3350 (Miralax) 17 grams PO DAILY PRN rizatriptan 10 mg PO ONCE PRN Tobacco use date assessed: 08/23/23 Dental Screening Dental Screen Date: 08/23/23 Did you have a dental visit in the last 12 months?: No Did you have a dental problem in the last 6 months where you did not have access to dental care?: No Was dental information given to patient?: Patient has dentist HPI AE HPI Details Patient is a 53-year-old female here today for routine annual physical. Patient has a past medical history significant for polyarthritis, opiate dependency. ---Concern--> reports she has been havin g significant right lower extremity cramps worse at night. PLAN: Advised on magnesium supplement and or tonic water before bed. Advised to increase her fluids and electrolytes in her diet. .. Opiate dependency: Continues to follow are [place] addiction treatment program and continues on Suboxone. She plans on slowly weaning off of Suboxone. . Generalized anxiety disorder : Continues to have difficulties anxiety to which he attributes to her marital problems. She does not want to take any medications for anxiety at this time. She has recently started to speak with a mental health therapist. Mammogram: Needs up-to-date mammogram Consumer Lender: Needs an up-to-date Pap Vaccines: Up-to-date with COVID vaccine, considering shingles vaccine, needs new tetanus vaccine, Colon cancer screening: Willing to do cologaurd. [facility] Medical History Breast calcification, left Abdominal bloating Collapse, lung Pneumothorax Surgical History History of total knee arthroplasty History of pneumonectomy H/O breast biopsy History of tooth extraction History of lumpectomy of right breast Family History Mother Depression COPD (chronic obstructive pulmonary disease) Lung cancer Father No problems noted. Other Mental health disorder Social History (Updated 08/23/23 @ 10:37 by Michael Galarza PA-C) Household Members: Spouse and Family Housing: House Are you a primary customer care associate to a significant other at home: No Do you presently have visiting nurse or other home services: No 75 years or older and lives alone: No Alcohol intake: current Alcohol intake frequency: a few times a month Alcohol type: beer Patient Tobacco Use Status: Former Tobacco user Years Smoked: smoked in high school e-Cigarette/Vaping Use: Never Used Second Hand Smoke Exposure: Yes service: No Current occupational status: employed 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 1. Little interest or pleasure in doing things: nearly every day 2. Feeling down, depressed, or hopeless: several days 3. Trouble falling or staying asleep, or sleeping too much: not at all 4. Feeling tired or having little energy: several days 5. Poor appetite or overeating: nearly every day 6. Feeling bad about yourself - or that you are a failure or have let yourself or your family down: not at all 7. Trouble concentrating on things, such as reading the newspaper or watching television: not at all 8. Moving or speaking so slowly that other people could have noticed. Or the opposite - being so fidgety or restless that you have been moving around a lot more than usual: not at all 9. Thoughts that you would be better off or of hurting yourself in some way: not at all Total score: 8 Depression Screening Interpretation: Positive Depression Screening Follow-up: Existing condition and In treatment Depression Screening Done: Yes 70409 - PHQ-9 Billing: Yes Source: Developed by Drs. Daniel Ojeda, Vicky Sweet, Hans Lagos and colleagues, with an educational travis from [employer]. Thrive Questionnaire Date Thrive assessed: 08/23/23 I am a: Patient What is your living situation today?: I have a steady place to live Within the past 12 months, did the food you bought not last and you didn't have the money to get more?: Never true Within the past 12 months, did you worry whether your food would run out before you got money to buy more?: Never true Do you have trouble paying for medicines?: No Do you have trouble getting transportation to medical appointments?: No Do you have trouble paying your heating and electricity bill?: No Do you have trouble taking care of your child, family member or friend?: No Do you have trouble with day-to-day activities such as bathing, preparing meals, shopping, managing finances, etc.?: No Are you currently unemployed and looking for a job?: No Are you interested in more education?: No Please select the resources that you would like help with: None Currently or been in a relationship where the following occur: no concerns reported THRIVE Score: 0 AUDIT C Alcohol Use Questionnaire (AUDIT-C) 1. How often do you have a drink containing alcohol?: Monthly or less 2. How many drinks containing alcohol do you have on a typical day when you are drinking?: 1 or 2 3. How often do you have six or more drinks on one occasion?: Never Total Score: 1 MARIA-7 AMB Questionnaire MARIA-7 Date MARIA - 7 assessed: 08/23/23 Feeling nervous, anxious, or on edge: 3 = Nearly every day Not being able to stop or control worryin = Nearly every day Worrying too much about different things: 3 = Nearly every day Trouble relaxin = Nearly every day Being so restless that it is hard to sit still: 2 = More than half the days Becoming easily annoyed or irritable: 2 = More than half the days Feeling afraid as if something awful might happen: 3 = Nearly every day Total MARIA-7 score (0-4 normal; 5-9 mild; 10-14 moderate; 15-21 severe): 19 Source: Developed by Drs. Daniel Ojeda, Vicky Sweet, Hans Lagos and colleagues, with an educational travis from [employer]. MARIA-7 Assessment Billing MARIA-7 Assessment Tool: MARIA-7 Assessment 82366 Review of Systems Const Denies body aches, Denies chills, Denies excessive sweating, Denies fatigue, Denies fever(s) and Denies headache(s) Eyes Denies blurry vision ENT Denies dysphagia, Denies vertigo, Denies dizziness, Denies headache(s), Denies hearing loss and Denies tinnitus Card Denies chest pain, Denies chest pain with activity, Denies syncope, Denies irregular heart rhythm and Denies dyspnea Resp Denies chest congestion, Denies cough, Denies hemoptysis, Denies dyspnea and Denies wheezing GI Denies abdominal pain, Denies melena, Denies hematochezia, Denies coffee ground emesis, Denies dysphagia, Denies diarrhea, Denies nausea and Denies vomiting Denies urinary frequency, Denies dysuria, Denies urinary hesitancy and Denies urinary urgency Musc Denies arthralgias, Denies limited range of motion, Denies muscle cramps and Denies muscle weakness Skin/Breast Denies rash and Denies skin ulcer Neuro Denies Abnormal speech present, Denies confusion, Denies vertigo, Denies dizziness, Denies syncope, Denies headache(s), Denies memory loss and Denies seizure-like activity Psych Denies anxiety, Denies confusion, Denies depression, Denies memory loss, Denies panic attacks and Denies paranoia Endo Denies excessive sweating, Denies fatigue, Denies flushing, Denies polydipsia and Denies polyuria Aller/Immun Denies wheezing Physical exam (Primary Care) Vital Signs: Last Vital Signs Pulse 75 08/23/23 10:20 Resp 17 08/23/23 10:20 BP 114/76 08/23/23 10:20 Pulse Ox 98 08/23/23 10:20 Oxygen Delivery Method Room Air 08/23/23 10:20 BMI result Body Mass Index 21.2 Tobacco/Smoking Status: Tobacco use Status Tobacco use date assessed 08/23/23 08/23/23 10:28 Patient Tobacco Use Status Former Tobacco user 08/23/23 10:37 e-Cigarette/Vaping Use Never Used 08/23/23 10:37 PHQ-9: PHQ-9 Score PHQ-9: Total score 8 08/23/23 11:00 Depression Screening Interpretation: Positive Depression Screening Follow-up: Existing condition and In treatment Thrive Assessment: Date of Thrive Assessment Date Thrive assessed 08/23/23 08/23/23 10:28 Currently or been in a relationship where the following occur: no concerns reported Const General: cooperative, comfortable, no acute distress, alert and awake; No confusion Orientation/consciousness: oriented to person, oriented to place, patient oriented x3 and No confusion HENMT Head: Yes normocephalic Ears: external ears normal and TM's normal bilaterally Face and sinus: No sinus tenderness Mouth: Normal oral and palatal mucosa present and tongue normal Teeth and gingiva: dentition normal and gingiva normal Throat: Yes posterior oropharynx normal, Yes tonsils normal and Yes uvula midline Eyes Conjunctivae: conjunctivae normal Sclerae: sclerae normal Pupils: Equal, round and reactive pupils present EOM: EOMs intact bilaterally Direct Ophthalmoscopy: No no photophobia Neck Neck: Yes no lymphadenopathy, No tender and Yes no JVD Thyroid: Thyroid normal Carotids: no bruits Chest Chest palpation & inspection: no tenderness Resp Effort & Inspection: normal respiratory effort, no audible wheezes, not labored and no stridor Auscultation: no crackles, no rales, no rhonchi and no wheezes Cardio Jugular venous distension: no JVD Rate: regular rate, not bradycardic and not tachycardic Rhythm: regular rhythm Bruits: no carotid bruits Peripheral pulses: Peripheral pulses 2+ throughout GI Inspection: Yes normal to inspection, No abdominal wall ecchymosis and No visible herniation Palpation (GI): Soft to palpation, nontender, no guarding, not rigid and No hepatosplenomegaly present Auscultation: normoactive bowel sounds General: Yes no CVA tenderness Back/Spine/Pelvis Back: no CVA tenderness and No back tenderness Cervical Spine: cervical ROM normal Thoracic/Lumbar Spine: thoracic and lumbar spine normal to inspection, straight leg raise negative bilaterally, No thoraco-lumbar ROM limited and No lumbar spinal tenderness Skin Lesions: no lesions Rashes: no rashes Wounds: no wounds Neuro General: oriented to person, oriented to place, patient oriented x3, CN's II-XI intact bilaterally and No confusion Cranial nerves: Yes Equal, round and reactive pupils present and Yes Normal accommodation reflex present Cognition (Neuro): normal cognition Speech: No Abnormal speech present Gait exam (Neuro): Normal gait present Motor exam (neuro): 5/5 motor strength present throughout Extrem Right upper extremity: full ROM; no cyanosis Left upper extremity: full ROM; no cyanosis Right lower extremity: no edema Left lower extremity: no edema Psych Appearance: grossly normal Mental Status: mental status grossly normal Affect: normal affect Attitude: cooperative Thought process: Normal thought process present Immunizations Boostrix Tdap 2.5 Lf unit-8 mcg-5 Lf/0.5 mL intramuscular syringe Performing Provider: Michael Galarza PA-C Performing Location: [facility] Administered by: ARCADIO Melendez on 08/23/23 11:00 Dose Route Admin Location Dispensed Lot Number Expiration Date NDC Sweatband Maker 0.5 mL IM Left Deltoid 0.5 mL [id number] 10/02/25 [id number] Solar Flow-Through VIS Given Date VIS Provided VIS Publication Date 08/23/23 Single Vaccine 21 Eligibility Eligibility Date Funding Source Not [facility] Eligible 08/23/23 Private Assessment and Plan Assessment & Plan (1) Annual physical exam: Code(s): Z00.00 - Encounter for general adult medical examination without abnormal findings (2) Breast cancer screening: Code(s): Z12.39 - Encounter for other screening for malignant neoplasm of breast Qualifiers: Breast cancer screening modality: mammogram Qualified Code(s): Z12.31 - Encounter for screening mammogram for malignant neoplasm of breast Plan: Willing to do mammogram (3) MARIA (generalized anxiety disorder): Code(s): F41.1 - Generalized anxiety disorder Plan: Patient reports she has been suffering increased anxiety. She attributes her anxiety to problems with her marital life. She will be starting counseling in near future. She has not interested in any medications for anxiety at this time. (4) Cervical cancer screening: Code(s): Z12.4 - Encounter for screening for malignant neoplasm of cervix Plan: Needs Pap screening (5) Colon cancer screening: Code(s): Z12.11 - Encounter for screening for malignant neoplasm of colon Plan: Interested in Cologuard (6) Screening for diabetes mellitus (DM): Code(s): Z13.1 - Encounter for screening for diabetes mellitus (7) Opioid dependence on agonist therapy: Code(s): F11.20 - Opioid dependence, uncomplicated Plan: Continues to follow [place] [facility] program. Continues to try to wean Suboxone very slowly. (8) Leg cramps: Code(s): R25.2 - Cramp and spasm Plan: Reports having right lower extremity leg cramps\, Advised on tonic water and or magnesium supplementation to use before sleep. Orders: Orders TDaP Immunization Today Z23 - Encounter for immunization Comprehensive [place]. Panel Fast Today Z13.1 - Encounter for screening for diabetes mellitus MM screening mammo BI Today Z12.31 - Encounter for screening mammogram for malignant neoplasm of breast Referrals [facility] [employer] Referral Z12.4 - Encounter for screening for malignant neoplasm of cervix Cologuard Test Z12.11 - Encounter for screening for malignant neoplasm of colon Coding Level of Care Code Est Pt Prev Care 40-64y(73007) Diagnoses Annual physical exam Z00.00 Encounter for screening mammogram for malignant neoplasm of breast Z12.31 Breast cancer screening modality: mammogram MARIA (generalized anxiety disorder) F41.1 Cervical cancer screening Z12.4 Colon cancer screening Z12.11 Screening for diabetes mellitus (DM) Z13.1 Opioid dependence on agonist therapy F11.20 Leg cramps R25.2 Additional Codes MARIA-7 Assessment Billing - MARIA-7 Assessment Tool: MARIA-7 Assessment 67541 ([id number])
[2023-08-23 10:20] VITALS: BP 114/76; PULSE 75; RESP 17; O2SAT 98; BMI 21.2
== END 2023-08-23 11:06 | disposition home or self-care (01) ==
PROVIDERS: PCP Physician Assistant; Visit Provider Physician Assistant
DX: Z00.00 Encounter for general adult medical examination without abnormal findings (principal); F11.20 Opioid dependence, uncomplicated; R25.2 Cramp and spasm; Z23 Encounter for immunization; Z12.31 Encounter for screening mammogram for malignant neoplasm of breast; F41.1 Generalized anxiety disorder; Z12.11 Encounter for screening for malignant neoplasm of colon; Z13.1 Encounter for screening for diabetes mellitus
CPT/HCPCS: 90471; 90715; 99396

== ENCOUNTER 2023-09-13 14:01 | Outpatient (REF) | payer BC, OTHER, SELFPAY ==
--- NOTE | ~2023-09-13 | MM_ITS ---
EXAMINATION: MM SCREENING DIGITAL BREAST TOMOSYNTHESIS, BILATERAL CLINICAL INFORMATION: Screening. Asymptomatic. The patient is status post stereotactic biopsy of calcifications in the upper outer quadrant of the left breast performed in December 2020. On pathology benign findings. A buckle clip was placed in the biopsy bed and there were no residual calcifications from the stereotactic target at that time. COMPARISON: Mammography: This study is compared with prior exams dating back to 2019. TECHNIQUE: Digital breast tomosynthesis is performed in both the craniocaudal and mediolateral oblique views along with computer-aided detection (CAD). Synthesized 2D images are generated from the tomosynthesis. FINDINGS: The breasts are heterogeneously dense, which may obscure small masses (ACR BI-RADS breast composition Category c). There is a buckle shaped tissue marker present in the upper outer quadrant of the left breast from prior benign percutaneous biopsy. There are no calcifications within the stereotactic biopsy bed. Approximately 3 cm posteromedial to the buckle clip are approximately 4 monomorphic, rounded calcifications. These calcifications were not defined on earlier examinations and warrant additional mammographic imaging with magnification. In the right breast, there are no significant masses, abnormal calcifications, or other abnormalities. MM/MM tomosynthesis screening BI IMPRESSION: Left breast calcifications warrant additional mammographic imaging with magnification. No mammographic signs of malignancy right breast. ASSESSMENT: BI-RADS BI-RADS 0 - Incomplete: Needs additional Imaging. RECOMMENDATION: Additional views of the left breast. Radiology department staff will contact the patient for additional imaging. Additional Imaging required This examination should not preclude the clinical evaluation of a suspicious palpable abnormality. This patient's information was entered into a reminder system with a target due date for their next mammogram.
== END 2023-09-13 14:02 | disposition home or self-care (01) ==
LOC: HO.MAMMO 14:01
PROVIDERS: Visit Provider Physician Assistant
DX: Z12.31 Encounter for screening mammogram for malignant neoplasm of breast (principal)
CPT/HCPCS: 77063; 77067

== ENCOUNTER → 2023-09-13 14:15 | Outpatient (BNV) | payer BC, OTHER, SELFPAY | PROVIDERS: Visit Provider Radiology Diagnostic Radiology | DX: Z12.31 Encounter for screening mammogram for malignant neoplasm of breast (principal) | CPT/HCPCS: 77063; 77067 ==

== ENCOUNTER 2023-09-20 14:27 | Outpatient (REF) | payer BC, OTHER, SELFPAY ==
--- NOTE | ~2023-09-20 | US_ITS ---
EXAMINATION: US EXTREMITY, NONVASCULAR CLINICAL INFORMATION: Lump of right leg Localized swelling, mass and lump, right lower limb COMPARISON: None available. TECHNIQUE: Real-time ultrasound the palpable area in the right anterior mid thigh US/US extremity nonvascular FINDINGS/IMPRESSION: Ultrasound over the palpable area in the right anterior mid thigh demonstrates on avascular 4.3 x 0.4 x 3.4 cm focus which is isoechoic to muscle. This is nonspecific in appearance. If of clinical concern, MRI scan could be obtained.
== END 2023-09-20 14:28 | disposition home or self-care (01) ==
LOC: HO.US 14:27
PROVIDERS: PCP Physician Assistant; Visit Provider Physician Assistant
DX: R22.41 Localized swelling, mass and lump, right lower limb (principal)
CPT/HCPCS: 76882

== ENCOUNTER 2023-10-11 10:39 | Outpatient (AMB) | payer BC, SELFPAY ==
[2023-10-11 10:52] VITALS: BP 138/86; PULSE 78; O2SAT 97
--- NOTE | 2023-10-11 10:52 | MHC.AM.SUB ---
Vital Signs 10/11/23 10:52 BP 138/86 Blood Pressure Location Lt brachial Position Sitting Pulse 78 Pulse Source Pulse Oximeter Pulse Oximetry (%) 97 Oxygen Delivery Method Room Air Intake Visit Reasons: MAT Visit Allergies sumatriptan Adverse Reaction (Unknown, Verified 08/23/23 10:33) Nausea codeine Adverse Reaction (Verified 08/23/23 10:33) Nausea HPI HPI MAT Visit: Details: Patient presents for follow up several issues with car still working FT Has not been to therapy in a few weeks--did not feel connected [facility] Medical History Breast calcification, left Abdominal bloating Collapse, lung Pneumothorax Surgical History History of total knee arthroplasty History of pneumonectomy H/O breast biopsy History of tooth extraction History of lumpectomy of right breast Family History Mother Depression COPD (chronic obstructive pulmonary disease) Lung cancer Father No problems noted. 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 Cognitive needs: No Hearing needs: No Vision needs: No Female Reproductive History Menstrual Age of Menarche: 13 Review of Systems Const Reports as per HPI Physical Exam Vital Signs: Last Vital Signs Pulse 78 10/11/23 10:52 BP 138/86 10/11/23 10:52 Pulse Ox 97 10/11/23 10:52 Oxygen Delivery Method Room Air 10/11/23 10:52 Const General: cooperative, healthy appearing and no acute distress Nutritional Appearance: average body habitus Orientation/consciousness: patient oriented x3 Limitations: no limitations Neuro General: patient oriented x3 Extrem General: Yes normal gait Right lower extremity: knee (right knee slightly swollen) Psych Appearance: well kempt Mental Status: mental status grossly normal Speech and movement: Normal speech and movement present Affect: Anxious affect present and Depressed mood present Attitude: cooperative Thought process: Normal thought process present Thought content: Normal thought content present Insight: Good insight present (Psych) Judgement: Good judgement present (Psych) Assessment & Plan Assessment & Plan (1) Opioid dependence on agonist therapy: Code(s): F11.20 - Opioid dependence, uncomplicated Category: Medical Plan: continue suboxone at current dose follow up 2 months listing of therapists mailed to patient to follow up on her own
== END 2023-10-11 11:15 | disposition home or self-care (01) ==
PROVIDERS: PCP Physician Assistant; Visit Provider Nurse Practitioner Psychiatric/Mental Health
DX: F11.20 Opioid dependence, uncomplicated (principal)
CPT/HCPCS: 99213

== ENCOUNTER → 2023-10-11 10:39 | Outpatient (BNVA) | payer BC, SELFPAY | PROVIDERS: PCP Physician Assistant; Visit Provider Nurse Practitioner Psychiatric/Mental Health ==

== ENCOUNTER 2023-10-18 13:48 | Outpatient (REF) | payer BC, SELFPAY ==
--- NOTE | ~2023-10-18 | MM_ITS ---
EXAMINATION: MM DIAGNOSTIC DIGITAL MAMMOGRAPHY, LEFT CLINICAL INFORMATION: Follow-up calcifications seen upper outer left breast, mid to posterior one third. History of benign stereotactic biopsy 01/07/2021. COMPARISON: Mammography: 09/13/2023, 12/24/2020, and dating back to 2014. TECHNIQUE: Digital mammography is performed in the following views: 2-D spot magnification left CC and ML views. FINDINGS: The breasts are heterogeneously dense, which may obscure small masses (ACR BI-RADS breast composition Category c). Diagnostic magnification views demonstrate approximately 4 rounded calcifications in the slightly upper far outer left breast mid to posterior one third. These have a probably benign morphology without evidence of linear forms, branching forms, or significant pleomorphism. There are suitable for six-month follow-up to ensure stability. Results are provided to the patient at time of visit by the technologist. MM/MM added views LT IMPRESSION: Probably benign calcifications upper outer left breast as detailed. Six-month follow-up left mammography recommended to include standard magnification views. ASSESSMENT: BI-RADS BI-RADS 3 - Probably benign finding(s) - 6 month follow-up suggested RECOMMENDATION: 6 Month F/U This patient's information was entered into a reminder system with a target due date for their next mammogram.
== END 2023-10-18 13:49 | disposition home or self-care (01) ==
LOC: HO.MAMMO 13:48
PROVIDERS: PCP Physician Assistant; Visit Provider Physician Assistant
DX: R92.1 Mammographic calcification found on diagnostic imaging of breast (principal)
CPT/HCPCS: 77065

== ENCOUNTER → 2023-10-18 14:00 | Outpatient (BNV) | payer BC, SELFPAY | PROVIDERS: PCP Physician Assistant; Visit Provider Radiology Diagnostic Radiology | DX: R92.1 Mammographic calcification found on diagnostic imaging of breast (principal) | CPT/HCPCS: 77061; 77065 ==

== ENCOUNTER 2023-11-22 10:35 | Outpatient (AMB) | payer BC, SELFPAY ==
--- NOTE | 2023-11-22 15:07 | MHC.AM.SUB ---
Intake Visit Reasons: MAT Visit Allergies sumatriptan Adverse Reaction (Unknown, Verified 08/23/23 10:33) Nausea codeine Adverse Reaction (Verified 08/23/23 10:33) Nausea [facility] HPI MAT Visit: Details: Patient presents for follow up Currently prescribed Suboxone 8mg daily No issues related to medication Denies side effects Discussed depressive sx and challenges at home Reviewed self care [facility] Medical History Breast calcification, left Abdominal bloating Collapse, lung Pneumothorax Surgical History History of total knee arthroplasty History of pneumonectomy H/O breast biopsy History of tooth extraction History of lumpectomy of right breast Family History Mother Depression COPD (chronic obstructive pulmonary disease) Lung cancer Father No problems noted. Other Mental health disorder Social History (Updated 08/23/23 @ 10:37 by Michael Galarza PA-C) Household Members: Spouse and Family Housing: House Are you a primary healthcare business analyst to a significant other at home: No Do you presently have visiting nurse or other home services: No 75 years or older and lives alone: No Alcohol intake: current Alcohol intake frequency: a few times a month Alcohol type: beer Patient Tobacco Use Status: Former Tobacco user Years Smoked: smoked in high school e-Cigarette/Vaping Use: Never Used Second Hand Smoke Exposure: Yes service: No Current occupational status: employed 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 Cognitive needs: No Hearing needs: No Vision needs: No Female Reproductive History Menstrual Age of Menarche: 13 Review of Systems Const Reports as per HPI and Reports no additional complaints Physical Exam Const General: cooperative, healthy appearing and no acute distress Nutritional Appearance: average body habitus Orientation/consciousness: patient oriented x3 Limitations: no limitations Neuro General: patient oriented x3 Extrem General: Yes normal gait Right lower extremity: knee (right knee slightly swollen) Psych Appearance: well kempt Mental Status: mental status grossly normal Speech and movement: Normal speech and movement present Affect: Anxious affect present and Depressed mood present Attitude: cooperative Thought process: Normal thought process present Thought content: Normal thought content present Insight: Good insight present (Psych) Judgement: Good judgement present (Psych) Assessment & Plan Assessment & Plan (1) Opioid dependence on agonist therapy: Code(s): F11.20 - Opioid dependence, uncomplicated Category: Medical Plan: continue subxone at current dose follow up 2 months Medications: Refilled buprenorphine-naloxone 8-2 mg (Suboxone) Pain control 1 film sublingual DAILY 30 ea 1RF 30 days M47.812 - Spondylosis without myelopathy or radiculopathy, cervical region, 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
== END 2023-11-22 11:10 | disposition home or self-care (01) ==
PROVIDERS: PCP Physician Assistant; Visit Provider Nurse Practitioner Psychiatric/Mental Health
DX: F11.20 Opioid dependence, uncomplicated (principal)
CPT/HCPCS: 99213

== ENCOUNTER → 2023-11-22 10:35 | Outpatient (BNVA) | payer BC, SELFPAY | PROVIDERS: PCP Physician Assistant; Visit Provider Nurse Practitioner Psychiatric/Mental Health ==

== ENCOUNTER 2024-01-17 13:15 | Outpatient (AMB) | payer BC, SELFPAY ==
[2024-01-17 13:26] VITALS: BP 140/80; PULSE 65; O2SAT 98
--- NOTE | 2024-01-17 13:26 | A.OFFVISCC_ITS ---
Vital Signs 01/17/24 13:26 BP 140/80 H Blood Pressure Location Lt brachial Position Sitting Pulse 65 Pulse Source Pulse Oximeter Pulse Oximetry (%) 98 Intake Visit Reasons: MAT Visit Allergies sumatriptan Adverse Reaction (Unknown, Verified 08/23/23 10:33) Nausea codeine Adverse Reaction (Verified 08/23/23 10:33) Nausea HPI HPI MAT Visit: Details: Patient presents for follow up Currently prescribed suboxone 8mg QD Reporting she recently fractures ribs due to a fall at work she appears uncomfortable no other issues to report at this time [facility] OF [facility] Medical History Breast calcification, left Abdominal bloating Collapse, lung Pneumothorax Surgical History History of total knee arthroplasty History of pneumonectomy H/O breast biopsy History of tooth extraction History of lumpectomy of right breast Family History Mother Depression COPD (chronic obstructive pulmonary disease) Lung cancer Father No problems noted. Other Mental health disorder Social History (Updated 08/23/23 @ 10:37 by Michael Galarza PA-C) Household Members: Spouse and Family Housing: House Are you a primary landcare officer to a significant other at home: No Do you presently have visiting nurse or other home services: No 75 years or older and lives alone: No Alcohol intake: current Alcohol intake frequency: a few times a month Alcohol type: beer Patient Tobacco Use Status: Former Tobacco user Years Smoked: smoked in high school e-Cigarette/Vaping Use: Never Used Second Hand Smoke Exposure: Yes service: No Current occupational status: employed 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 Cognitive needs: No Hearing needs: No Vision needs: No Female Reproductive History Menstrual Age of Menarche: 13 Review of Systems Const Reports as per HPI Physical Exam Vital Signs: Last Vital Signs Pulse 65 01/17/24 13:26 BP 140/80 H 01/17/24 13:26 Pulse Ox 98 01/17/24 13:26 Const General: cooperative, healthy appearing and no acute distress Nutritional Appearance: average body habitus Orientation/consciousness: patient oriented x3 Limitations: no limitations Neuro General: patient oriented x3 Extrem General: Yes normal gait Right lower extremity: knee (right knee slightly swollen) Psych Appearance: well kempt Mental Status: mental status grossly normal Speech and movement: Normal speech and movement present Affect: Anxious affect present and Depressed mood present Attitude: cooperative Thought process: Normal thought process present Thought content: Normal thought content present Insight: Good insight present (Psych) Judgement: Good judgement present (Psych) Assessment & Plan Assessment & Plan (1) Opioid dependence on agonist therapy: Code(s): F11.20 - Opioid dependence, uncomplicated Category: Medical Plan: * continue subxone at current dose * follow up 2 months Medications: Refilled buprenorphine-naloxone 8-2 mg (Suboxone) Pain control 1 film sublingual DAILY 30 ea 1RF 30 days 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, M47.812 - Spondylosis without myelopathy or radiculopathy, cervical region
== END 2024-01-17 13:52 | disposition home or self-care (01) ==
PROVIDERS: PCP Physician Assistant; Visit Provider Nurse Practitioner Psychiatric/Mental Health
DX: F11.20 Opioid dependence, uncomplicated (principal)
CPT/HCPCS: 99213

== ENCOUNTER → 2024-01-17 13:15 | Outpatient (BNVA) | payer BC, SELFPAY | PROVIDERS: PCP Physician Assistant; Visit Provider Nurse Practitioner Psychiatric/Mental Health | DX: M51.37 Other intervertebral disc degeneration, lumbosacral region (principal); M47.812 Spondylosis without myelopathy or radiculopathy, cervical region ==

== ENCOUNTER 2024-03-27 13:36 | Outpatient (AMB) | payer BC, SELFPAY ==
--- NOTE | 2024-03-27 13:42 | A.OFFVISCC_ITS ---
Intake Visit Reasons: MAT Office Allergies sumatriptan Adverse Reaction (Unknown, Verified 08/23/23 10:33) Nausea codeine Adverse Reaction (Verified 08/23/23 10:33) Nausea [facility] HPI MAT Office: Details: Patient presents for follow up Currently prescribed suboxone 8mg daily No issues related to medication Ribs are feeling back to baseline, some soreness, but overall much improved PFSH Medical History Breast calcification, left Abdominal bloating Collapse, lung Pneumothorax Surgical History History of total knee arthroplasty History of pneumonectomy H/O breast biopsy History of tooth extraction History of lumpectomy of right breast Family History Mother Depression COPD (chronic obstructive pulmonary disease) Lung cancer Father No problems noted. Other Mental health disorder Social History (Updated 08/23/23 @ 10:37 by Michael Galarza PA-C) Household Members: Spouse and Family Housing: House Are you a primary care manager cna to a significant other at home: No Do you presently have visiting nurse or other home services: No 75 years or older and lives alone: No Alcohol intake: current Alcohol intake frequency: a few times a month Alcohol type: beer Patient Tobacco Use Status: Former Tobacco user Years Smoked: smoked in high school e-Cigarette/Vaping Use: Never Used Second Hand Smoke Exposure: Yes service: No Current occupational status: employed 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 Cognitive needs: No Hearing needs: No Vision needs: No Female Reproductive History Menstrual Age of Menarche: 13 Review of Systems Const Reports as per HPI Physical Exam Const General: cooperative, healthy appearing and no acute distress Nutritional Appearance: average body habitus Orientation/consciousness: patient oriented x3 Limitations: no limitations Neuro General: patient oriented x3 Extrem General: Yes normal gait Right lower extremity: knee (right knee slightly swollen) Psych Appearance: well kempt Mental Status: mental status grossly normal Speech and movement: Normal speech and movement present Affect: Anxious affect present and Depressed mood present Attitude: cooperative Thought process: Normal thought process present Thought content: Normal thought content present Insight: Good insight present (Psych) Judgement: Good judgement present (Psych) Assessment & Plan Assessment & Plan (1) Opioid dependence on agonist therapy: Code(s): F11.20 - Opioid dependence, uncomplicated Category: Medical Plan: * continue subxone at current dose * follow up 2 months
== END 2024-03-27 13:45 | disposition home or self-care (01) ==
LOC: HO.HCC 13:37
PROVIDERS: PCP Physician Assistant; Visit Provider Nurse Practitioner Psychiatric/Mental Health
DX: F11.20 Opioid dependence, uncomplicated (principal)
CPT/HCPCS: 99213

== ENCOUNTER → 2024-03-27 13:36 | Outpatient (BNVA) | payer BC, SELFPAY | PROVIDERS: PCP Physician Assistant; Visit Provider Nurse Practitioner Psychiatric/Mental Health ==

== ENCOUNTER 2024-05-15 13:02 | Outpatient (AMB) | payer BC, SELFPAY ==
--- NOTE | 2024-05-15 13:09 | A.OFFVISCC_ITS ---
Intake Visit Reasons: MAT Allergies sumatriptan Adverse Reaction (Unknown, Verified 08/23/23 10:33) Nausea codeine Adverse Reaction (Verified 08/23/23 10:33) Nausea Medication List - Last Reconciled 05/15/24 by Susy Florez CNP buprenorphine-naloxone 8-2 mg (Suboxone) 1 film sublingual DAILY 30 days cetirizine 10 mg PO DAILY clonidine HCl 0.1 mg PO BEDTIME cyclobenzaprine 10 mg PO TID PRN docusate sodium 100 mg PO Q12H gabapentin 300 mg PO BEDTIME leg brace (Knee Support Brace) As directed rizatriptan 10 mg PO ONCE PRN HPI HPI MAT: Details: Patient presents for follow up Currently prescribed Suboxone 8mg daily Doing okay with current dose No issues related to medication Continues to work FT Review of Systems Const Reports as per HPI and Reports no additional complaints Physical Exam Const General: cooperative, healthy appearing and no acute distress Nutritional Appearance: average body habitus Orientation/consciousness: patient oriented x3 Limitations: no limitations Neuro General: patient oriented x3 Extrem General: Yes normal gait Right lower extremity: knee (right knee slightly swollen) Psych Appearance: well kempt Mental Status: mental status grossly normal Speech and movement: Normal speech and movement present Affect: Anxious affect present and Depressed mood present Attitude: cooperative Thought process: Normal thought process present Thought content: Normal thought content present Insight: Good insight present (Psych) Judgement: Good judgement present (Psych) Assessment & Plan Assessment & Plan (1) Opioid dependence on agonist therapy: Code(s): F11.20 - Opioid dependence, uncomplicated Category: Medical Plan: * continue subxone at current dose * follow up 3 months [facility] Medical History Breast calcification, left Abdominal bloating Collapse, lung Pneumothorax Surgical History History of total knee arthroplasty History of pneumonectomy H/O breast biopsy History of tooth extraction History of lumpectomy of right breast Family History Mother Depression COPD (chronic obstructive pulmonary disease) Lung cancer Father No problems noted. Other Mental health disorder Social History (Updated 08/23/23 @ 10:37 by Michael Galarza PA-C) Household Members: Spouse and Family Housing: House Are you a primary care team assistant to a significant other at home: No Do you presently have visiting nurse or other home services: No 75 years or older and lives alone: No Alcohol intake: current Alcohol intake frequency: a few times a month Alcohol type: beer Patient Tobacco Use Status: Former Tobacco user Years Smoked: smoked in high school e-Cigarette/Vaping Use: Never Used Second Hand Smoke Exposure: Yes service: No Current occupational status: employed 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
== END 2024-05-15 13:39 | disposition home or self-care (01) ==
PROVIDERS: PCP Physician Assistant; Visit Provider Nurse Practitioner Psychiatric/Mental Health
DX: F11.20 Opioid dependence, uncomplicated (principal)
CPT/HCPCS: 99213

== ENCOUNTER → 2024-05-15 13:02 | Outpatient (BNVA) | payer BC, SELFPAY | PROVIDERS: PCP Physician Assistant; Visit Provider Nurse Practitioner Psychiatric/Mental Health ==

== ENCOUNTER 2024-06-08 13:05 | Outpatient (REF) | payer BC, SELFPAY ==
--- NOTE | ~2024-06-08 | MM_ITS ---
EXAMINATION: MM DIAGNOSTIC DIGITAL MAMMOGRAPHY, LEFT CLINICAL INFORMATION: 1 year follow-up left breast calcifications. COMPARISON: Mammography: Comparison is made with available prior examinations. TECHNIQUE: Digital mammography is performed in craniocaudal and mediolateral oblique views along with computer-aided detection (CAD). FINDINGS: The breasts are heterogeneously dense, which may obscure small masses (ACR BI-RADS breast composition Category c). 3 punctate calcifications in the upper outer breast posterior depth are not significantly changed from priors on magnification views. No suspicious masses or other abnormal findings. Results are provided to the patient at time of visit by the technologist. MM/MM diagnostic mammo unilat LT IMPRESSION: Punctate calcifications in the upper outer quadrant not significantly changed from prior's. Recommend 6 month follow-up to demonstrate 1 year stability when the patient is due for bilateral mammography. ASSESSMENT: BI-RADS BI-RADS 3 - Probably benign finding(s) - 6 month follow-up suggested RECOMMENDATION: 6 Month F/U This patient's information was entered into a reminder system with a target due date for their next mammogram. Electronically signed by: Gabriela Sorenson DO 06/08/2024 01:43 PM [facility]
== END 2024-06-08 13:06 | disposition home or self-care (01) ==
LOC: HO.MAMMO 13:05
PROVIDERS: PCP Physician Assistant; Visit Provider Physician Assistant
DX: R92.1 Mammographic calcification found on diagnostic imaging of breast (principal)
CPT/HCPCS: 77062; 77065

== ENCOUNTER → 2024-06-08 13:30 | Outpatient (BNV) | payer BC, SELFPAY | PROVIDERS: PCP Physician Assistant; Visit Provider Internal Medicine | DX: R92.1 Mammographic calcification found on diagnostic imaging of breast (principal) | CPT/HCPCS: 77065 ==

== ENCOUNTER 2024-08-24 10:17 | Outpatient (REF) | payer BC, SELFPAY ==
[2024-08-24 11:37] LABS: Hematocrit 41.4 % (37.0-47.0); Mean Corpuscular HGB Conc 33.8 g/dl (31.0-35.0); Mean Corpuscular Hemoglobin 32.6 pg (27.0-33.0); Mean Corpuscular Volume 96.5 fL (80.0-98.0); Mean Platelet Volume 9.2 fL (9.4-12.3); Platelet Count 160 X10*3/uL (160-400); Red Blood Count 4.29 X10*6/uL (4.20-5.50); Red Cell Distribution Width 12.3 % (11.0-16.0); White Blood Count 3.5 X10*3/uL (4.8-10.8)
[2024-08-24 12:23] LABS: Albumin Level 4.2 g/dL (3.5-5.0); Alkaline Phosphatase 111 U/L (39-117); Anion Gap 10 (12-20); Aspartate Amino Transferase 75 U/L (5-31); Bilirubin Total 0.9 mg/dL (0.0-1.0); Blood Urea Nitrogen 13 mg/dL (9-16); Calcium 9.4 mg/dL (8.4-10.2); Carbon Dioxide 28 mmol/L (22-29); Chloride 108 mmol/L (96-108); Estimated Glomerular Filt Rate > 60; Glucose Random 78 mg/dL (60-115); Potassium 4.7 mmol/L (3.3-5.1); Sodium 141 mmol/L (135-145); Total Protein 6.9 g/dL (6.5-8.0)
[2024-08-24 12:37] LABS: Alanine Aminotransferase 54 U/L (0-31)
== END 2024-08-24 10:18 | disposition home or self-care (01) ==
LOC: HO.LAB 10:17
PROVIDERS: PCP Physician Assistant; Visit Provider Physician Assistant
DX: Z00.00 Encounter for general adult medical examination without abnormal findings (principal); F11.20 Opioid dependence, uncomplicated; F41.1 Generalized anxiety disorder; F33.0 Major depressive disorder, recurrent, mild; Z13.1 Encounter for screening for diabetes mellitus
CPT/HCPCS: 36415; 80053; 85027; 96127

== ENCOUNTER 2024-08-24 10:17 | Outpatient (AMB) | payer BC, SELFPAY ==
[2024-08-24 10:20] VITALS: BP 112/76; PULSE 60; TEMP 36.2; O2SAT 98; BMI 21.2
--- NOTE | 2024-08-24 10:20 | MHC.PC.OV ---
Vital Signs 08/24/24 10:20 Height 5 ft 6 in Weight 131 lb 8 oz BMI 21.2 BP 112/76 Blood Pressure Location Lt brachial Position Sitting Pulse 60 Pulse Source Pulse Oximeter Temp 97.1 F Temp Source Temporal Artery Scan Pulse Oximetry (%) 98 Oxygen Delivery Method Room Air Intake Visit Reasons: Annual Exam Cellophane Worker Required: No Accompanied by: Self / Same As Patient Allergies sumatriptan Adverse Reaction (Unknown, Verified 08/24/24 10:38) Nausea codeine Adverse Reaction (Verified 08/24/24 10:38) Nausea Medication List - Last Reconciled 08/24/24 by Michael Galarza PA-C buprenorphine-naloxone 8-2 mg (Suboxone) 1 film sublingual DAILY 30 days cetirizine 10 mg PO DAILY clonidine HCl 0.1 mg PO BEDTIME cyclobenzaprine 10 mg PO TID PRN docusate sodium 100 mg PO Q12H gabapentin 300 mg PO BEDTIME leg brace (Knee Support Brace) As directed rizatriptan 10 mg PO ONCE PRN Tobacco use date assessed: 08/24/24 Dental Screening Dental Screen Date: 08/24/24 Did you have a dental visit in the last 12 months?: Yes Did you have a dental problem in the last 6 months where you did not have access to dental care?: No Was dental information given to patient?: Patient has dentist HPI Annual Exam HPI Details Patient is a 54-year-old female here today for routine annual physical. Patient has a past medical history significant for polyarthritis, generalized anxiety disorder, opiate dependency. ---Concern--> .. Opiate dependency: Continues to follow are [place] addiction treatment program and continues on Suboxone. . Generalized anxiety disorder : Currently, the patient experiences significant anxiety, especially when not in control during car rides, causing her to panic and frequently engage in conflicts with her . She decided to discontinue Ativan due to its potential addictive nature and previous use only after a lung collapse. She is open to the idea of starting new medication for anxiety daily. She is open also to Another mental health therapist. 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 [facility] Medical History Breast calcification, left Abdominal bloating Collapse, lung Pneumothorax Surgical History History of total knee arthroplasty History of pneumonectomy H/O breast biopsy History of tooth extraction History of lumpectomy of right breast Family History Mother Depression COPD (chronic obstructive pulmonary disease) Lung cancer Father No problems noted. Other Mental health disorder Social History (Updated 08/24/24 @ 10:45 by Michael Galarza PA-C) Household Members: Spouse and Family Housing: House Are you a primary healthcare manager to a significant other at home: No Do you presently have visiting nurse or other home services: No 75 years or older and lives alone: No Alcohol intake: current Alcohol intake frequency: a few times a month Alcohol type: beer Patient Tobacco Use Status: Former Tobacco user Years Smoked: smoked in high school e-Cigarette/Vaping Use: Never Used Second Hand Smoke Exposure: Yes service: No Current occupational status: employed 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 1. Little interest or pleasure in doing things: not at all 2. Feeling down, depressed, or hopeless: not at all 3. Trouble falling or staying asleep, or sleeping too much: more than half the days 4. Feeling tired or having little energy: more than half the days 5. Poor appetite or overeating: not at all 6. Feeling bad about yourself - or that you are a failure or have let yourself or your family down: not at all 7. Trouble concentrating on things, such as reading the newspaper or watching television: not at all 8. Moving or speaking so slowly that other people could have noticed. Or the opposite - being so fidgety or restless that you have been moving around a lot more than usual: not at all 9. Thoughts that you would be better off or of hurting yourself in some way: not at all Total score: 4 Depression Screening Interpretation: Positive Depression Screening Follow-up: Existing condition and Community Mental Health Worker F/U Depression Screening Done: Yes 94271 - PHQ-9 Billing: Yes Source: Developed by Drs. Daniel Ojeda, Vicky Sweet, Hans Lagos and colleagues, with an educational travis from [employer]. Thrive Questionnaire Date Thrive assessed: 08/24/24 I am a: Patient What is your living situation today?: I have a steady place to live Within the past 12 months, did the food you bought not last and you didn't have the money to get more?: Never true Within the past 12 months, did you worry whether your food would run out before you got money to buy more?: Never true Do you have trouble paying for medicines?: No Do you have trouble getting transportation to medical appointments?: No Do you have trouble paying your heating and electricity bill?: No Do you have trouble taking care of your child, family member or friend?: No Do you have trouble with day-to-day activities such as bathing, preparing meals, shopping, managing finances, etc.?: No Are you currently unemployed and looking for a job?: Yes Are you interested in more education?: No Please select the resources that you would like help with: None Currently or been in a relationship where the following occur: No concerns reported THRIVE Score: 0 AUDIT C Alcohol Use Questionnaire (AUDIT-C) 1. How often do you have a drink containing alcohol?: 2-4 times a month 2. How many drinks containing alcohol do you have on a typical day when you are drinking?: 1 or 2 3. How often do you have six or more drinks on one occasion?: Never Total Score: 2 MARIA-7 AMB Questionnaire MARIA-7 Date MARIA - 7 assessed: 08/24/24 Feeling nervous, anxious, or on edge: 3 = Nearly every day Not being able to stop or control worryin = More than half the days Worrying too much about different things: 2 = More than half the days Trouble relaxin = More than half the days Being so restless that it is hard to sit still: 1 = Several days Becoming easily annoyed or irritable: 2 = More than half the days Feeling afraid as if something awful might happen: 2 = More than half the days Total MARIA-7 score (0-4 normal; 5-9 mild; 10-14 moderate; 15-21 severe): 14 Source: Developed by Drs. Daniel Ojeda, Vicky Sweet, Hans Lagos and colleagues, with an educational travis from [employer]. MARIA-7 Assessment Billing MARIA-7 Assessment Tool: MARIA-7 Assessment 37725 Review of Systems Const Denies body aches, Denies chills, Denies excessive sweating, Denies fatigue, Denies fever(s) and Denies headache(s) Eyes Denies blurry vision ENT Denies dysphagia, Denies vertigo, Denies dizziness, Denies headache(s), Denies hearing loss and Denies tinnitus Card Denies chest pain, Denies chest pain with activity, Denies syncope, Denies irregular heart rhythm and Denies dyspnea Resp Denies chest congestion, Denies cough, Denies hemoptysis, Denies dyspnea and Denies wheezing GI Denies abdominal pain, Denies melena, Denies hematochezia, Denies coffee ground emesis, Denies dysphagia, Denies diarrhea, Denies nausea and Denies vomiting Denies urinary frequency, Denies dysuria, Denies urinary hesitancy and Denies urinary urgency Musc Denies arthralgias, Denies limited range of motion, Denies muscle cramps and Denies muscle weakness Skin/Breast Denies rash and Denies skin ulcer Neuro Denies Abnormal speech present, Denies confusion, Denies vertigo, Denies dizziness, Denies syncope, Denies headache(s), Denies memory loss and Denies seizure-like activity Psych Denies anxiety, Denies confusion, Denies depression, Denies memory loss, Denies panic attacks and Denies paranoia Endo Denies excessive sweating, Denies fatigue, Denies flushing, Denies polydipsia and Denies polyuria Aller/Immun Denies wheezing Physical exam (Primary Care) Vital Signs: Last Vital Signs Temp 97.1 F 08/24/24 10:20 Pulse 60 08/24/24 10:20 BP 112/76 08/24/24 10:20 Pulse Ox 98 08/24/24 10:20 Oxygen Delivery Method Room Air 08/24/24 10:20 BMI result Body Mass Index 21.2 Tobacco/Smoking Status: Tobacco use Status Tobacco use date assessed 08/24/24 08/24/24 10:30 Patient Tobacco Use Status Former Tobacco user 08/24/24 10:21 e-Cigarette/Vaping Use Never Used 08/24/24 10:21 PHQ-9: PHQ-9 Score PHQ-9: Total score 4 08/24/24 10:30 Depression Screening Interpretation: Positive Depression Screening Follow-up: Existing condition and Community Mental Health Worker F/U Thrive Assessment: Date of Thrive Assessment Date Thrive assessed 08/24/24 08/24/24 10:21 Currently or been in a relationship where the following occur: No concerns reported Const General: cooperative, comfortable, no acute distress, alert and awake; No confusion Orientation/consciousness: oriented to person, oriented to place, patient oriented x3 and No confusion HENMT Head: Yes normocephalic Ears: external ears normal and TM's normal bilaterally Face and sinus: No sinus tenderness Mouth: Normal oral and palatal mucosa present and tongue normal Teeth and gingiva: dentition normal and gingiva normal Throat: Yes posterior oropharynx normal, Yes tonsils normal and Yes uvula midline Eyes Conjunctivae: conjunctivae normal Sclerae: sclerae normal Pupils: Equal, round and reactive pupils present EOM: EOMs intact bilaterally Direct Ophthalmoscopy: No no photophobia Neck Neck: Yes no lymphadenopathy, No tender and Yes no JVD Thyroid: Thyroid normal Carotids: no bruits Chest Chest palpation & inspection: no tenderness Resp Effort & Inspection: normal respiratory effort, no audible wheezes, not labored and no stridor Auscultation: no crackles, no rales, no rhonchi and no wheezes Cardio Jugular venous distension: no JVD Rate: regular rate, not bradycardic and not tachycardic Rhythm: regular rhythm Bruits: no carotid bruits Peripheral pulses: Peripheral pulses 2+ throughout GI Inspection: Yes normal to inspection, No abdominal wall ecchymosis and No visible herniation Palpation (GI): Soft to palpation, nontender, no guarding, not rigid and No hepatosplenomegaly present Auscultation: normoactive bowel sounds General: Yes no CVA tenderness Back/Spine/Pelvis Back: no CVA tenderness and No back tenderness Cervical Spine: cervical ROM normal Thoracic/Lumbar Spine: thoracic and lumbar spine normal to inspection, straight leg raise negative bilaterally, No thoraco-lumbar ROM limited and No lumbar spinal tenderness Skin Lesions: no lesions Rashes: no rashes Wounds: no wounds Neuro General: oriented to person, oriented to place, patient oriented x3, CN's II-XI intact bilaterally and No confusion Cranial nerves: Yes Equal, round and reactive pupils present and Yes Normal accommodation reflex present Cognition (Neuro): normal cognition Speech: No Abnormal speech present Gait exam (Neuro): Normal gait present Motor exam (neuro): 5/5 motor strength present throughout Extrem Right upper extremity: full ROM; no cyanosis Left upper extremity: full ROM; no cyanosis Right lower extremity: no edema Left lower extremity: no edema Psych Appearance: grossly normal Mental Status: mental status grossly normal Affect: normal affect Attitude: cooperative Thought process: Normal thought process present Coding Level of Care Code Est Pt Prev Care 40-64y(68480) Diagnoses Annual physical exam Z00.00 Opioid dependence on agonist therapy F11.20 MARIA (generalized anxiety disorder) F41.1 Screening for diabetes mellitus (DM) Z13.1 Mild episode of recurrent major depressive disorder F33.0 Major depression episode severity: mild Additional Codes MARIA-7 Assessment Billing - MARIA-7 Assessment Tool: MARIA-7 Assessment 48906 ([id number]) PHQ-9 - 35060 - PHQ-9 Billing: Yes ([id number]) Assessment & Plan Assessment & Plan (1) Annual physical exam: Code(s): Z00.00 - Encounter for general adult medical examination without abnormal findings Category: Medical Plan: As per HPI (2) Opioid dependence on agonist therapy: Code(s): F11.20 - Opioid dependence, uncomplicated Category: Medical Plan: Patient continues to follow comprehensive treatment center here in [place]. She continues on Suboxone with good effect. (3) MARIA (generalized anxiety disorder): Code(s): F41.1 - Generalized anxiety disorder Category: Medical Plan: Patient maria 7 score positive for moderate to severe anxiety. Initiate Buspirone 5 mg twice daily to address severe anxiety. Advise exploring therapy for mental health support. (4) Screening for diabetes mellitus (DM): Code(s): Z13.1 - Encounter for screening for diabetes mellitus Category: Medical Plan: As per HPI (5) MDD (major depressive disorder), recurrent episode: Code(s): F33.9 - Major depressive disorder, recurrent, unspecified Category: Medical Qualifiers: Major depression episode severity: mild Qualified Code(s): F33.0 - Major depressive disorder, recurrent, mild Plan: Patient's PHQ-9 score positive for mild depression which has been existing condition for her. She is willing to reestablish care with a talk therapist. Again will work on treating her anxiety at this time. Orders: Orders Comprehensive Met. 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
== END 2024-08-24 10:58 | disposition home or self-care (01) ==
LOC: HO.HMCH 10:17
PROVIDERS: PCP Physician Assistant; Visit Provider Physician Assistant
DX: Z00.00 Encounter for general adult medical examination without abnormal findings (principal); F11.20 Opioid dependence, uncomplicated; F33.0 Major depressive disorder, recurrent, mild; F41.1 Generalized anxiety disorder; Z13.1 Encounter for screening for diabetes mellitus

== ENCOUNTER 2024-09-25 09:43 | Outpatient (AMB) | payer BC, SELFPAY ==
--- NOTE | 2024-09-25 09:45 | MHC.OFFVIS ---
Vital Signs 09/25/24 09:52 Height 5 ft 6 in Weight 137 lb BMI 22.1 Pulse 63 Pulse Oximetry (%) 97 Oxygen Delivery Method Room Air Intake Visit Reasons: MAT Allergies sumatriptan Adverse Reaction (Unknown, Verified 09/25/24 09:52) Nausea codeine Adverse Reaction (Verified 09/25/24 09:52) Nausea HPI HPI MAT: Details: She takes Suboxone 8/2 daily and is interested in getting off someday. Her son ,a police records clerk, has left to live with girlfriend and she is with with no concerns. She has not heard about Sublocade and has had no infectious labs. [facility] Medical History Opioid use disorder Breast calcification, left Abdominal bloating Collapse, lung Pneumothorax Surgical History History of total knee arthroplasty History of pneumonectomy H/O breast biopsy History of tooth extraction History of lumpectomy of right breast Family History Mother Depression COPD (chronic obstructive pulmonary disease) Lung cancer Father No problems noted. 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 Cognitive needs: No Hearing needs: No Vision needs: No Female Reproductive History Menstrual Age of Menarche: 13 Review of Systems Const All systems reviewed & are unremarkable except as noted in HPI and below Physical Exam Vital Signs: Last Vital Signs Pulse 63 09/25/24 09:52 Pulse Ox 97 09/25/24 09:52 Oxygen Delivery Method Room Air 09/25/24 09:52 BMI result Body Mass Index 22.1 Const General: cooperative Results AMB 14 Panel Urine Drug Screen Urine Marijuana (THC) Positive Last Edit by Matthew Hensley CMA on 09/25/24 09:56 Urine Cocaine Negative Last Edit by Matthew Hensley CMA on 09/25/24 09:56 Urine Morphine Negative Last Edit by Matthew Hensley CMA on 09/25/24 09:56 Urine Methamphetamine Negative Last Edit by Matthew Hensley CMA on 09/25/24 09:56 Urine Amphetamine Negative Last Edit by Matthew Hensley CMA on 09/25/24 09:56 Urine Benzodiazepine Negative Last Edit by Matthew Hensley CMA on 09/25/24 09:56 Urine Barbiturates Negative Last Edit by Matthew Hensley CMA on 09/25/24 09:56 Urine Methadone Negative Last Edit by Matthew Hensley CMA on 09/25/24 09:56 Urine Buprenorphine Positive Last Edit by Matthew Hensley CMA on 09/25/24 09:56 Urine Tricyclic Antidepressant Negative Last Edit by Matthew Hensley CMA on 09/25/24 09:56 Urine MDMA Negative Last Edit by Matthew Hensley CMA on 09/25/24 09:56 Urine Oxycodone Negative Last Edit by Matthew Hensley CMA on 09/25/24 09:56 Urine Phencyclidine Negative Last Edit by Matthew Hensley CMA on 09/25/24 09:56 Urine Propoxyphene Negative Last Edit by Matthew Hensley CMA on 09/25/24 09:56 Results Reviewed Results Reviewed: Laboratory Last Values POC Urine Buprenorphine Positive 09/25/24 09:53 POC Urine Morphine Negative 09/25/24 09:53 POC Urine Oxycodone Negative 09/25/24 09:53 POC Urine Methadone Negative 09/25/24 09:53 POC Urine Propoxyphene Negative 09/25/24 09:53 POC Urine Barbiturates Negative 09/25/24 09:53 POC U Tricyclic Antidpr Negative 09/25/24 09:53 POC Urine PCP Negative 09/25/24 09:53 POC Ur Amphetamines Negative 09/25/24 09:53 POC Ur Methamphetamine Negative 09/25/24 09:53 POC Urine MDMA Negative 09/25/24 09:53 POC Ur Benzodiazepine Negative 09/25/24 09:53 POC Urine Cocaine Negative 09/25/24 09:53 POC Ur Marijuana (THC) Positive 09/25/24 09:53 Assessment & Plan Assessment & Plan (1) Opioid use disorder: Comment: She is doing well. She has Narcan. She is getting counseling Screen shows marijuana and Suboxone. Code(s): F11.90 - Opioid use, unspecified, uncomplicated Category: Medical Plan: Check labs Suboxone 8/2 daily ,one month and one refill. See in two months. Orders: Orders Hepatitis C Antibody Today F190 - Opioid use, unspecified, uncomplicated Hepatitis A IgG Today F1.90 - Opioid use, unspecified, uncomplicated Hepatitis B Surface Antigen Today F11.90 - Opioid use, unspecified, uncomplicated Syphilis Screen Today F11.90 - Opioid use, unspecified, uncomplicated AMB 14 Panel Urine Drug Screen Today Z51.81 - Encounter for therapeutic drug level monitoring HIV Ab/Ag Today F1.90 - Opioid use, unspecified, uncomplicated Hepatitis B Surface Antibody Today F1.90 - Opioid use, unspecified, uncomplicated T Spot TB Today F1.90 - Opioid use, unspecified, uncomplicated Medications: New buprenorphine-naloxone 8-2 mg (Suboxone) 1 film buccal DAILY 30 ea 1RF 30 days Coding Level of Care Code Est Pt Level 3 (94367) Diagnoses Opioid use disorder F11.90
[2024-09-25 09:52] VITALS: PULSE 63; O2SAT 97; BMI 22.1
== END 2024-09-25 10:17 | disposition home or self-care (01) ==
LOC: HO.HCC 09:44
PROVIDERS: PCP Physician Assistant; Visit Provider Internal Medicine
DX: Z51.81 Encounter for therapeutic drug level monitoring (principal); F11.90 Opioid use, unspecified, uncomplicated
CPT/HCPCS: 99213

== ENCOUNTER → 2024-09-25 09:43 | Outpatient (BNVA) | payer BC, SELFPAY | PROVIDERS: PCP Physician Assistant; Visit Provider Internal Medicine | DX: F11.20 Opioid dependence, uncomplicated (principal) | CPT/HCPCS: 80307 ==

== ENCOUNTER 2024-10-19 14:25 | Outpatient (REF) | payer BC, SELFPAY ==
--- NOTE | ~2024-10-19 | MM_ITS ---
EXAMINATION: MM DIAGNOSTIC DIGITAL BREAST TOMOSYNTHESIS, BILATERAL CLINICAL INFORMATION: 1 year follow-up for grouped calcifications in the upper outer left breast. COMPARISON: Mammography: Comparison is made with relevant prior exams. TECHNIQUE: Digital breast mammography with tomosynthesis is performed in both the craniocaudal and mediolateral oblique views along with computer-aided detection (CAD). FINDINGS: The breasts are heterogeneously dense, which may obscure small masses (ACR BI-RADS breast composition Category c). A few punctate calcifications in the upper outer left breast are not significantly changed from prior magnification views in back for one year. There are no significant masses, abnormal calcifications, or other abnormalities. Results are provided to the patient at time of visit by the technologist. MM/MM tomosynthesis diagnostic BI IMPRESSION: Left: A few punctate calcifications in the upper outer left breast are not significantly changed from prior magnification views dating back for one year. Probably benign. Recommend follow-up in one year with magnification views when the patient is due for bilateral mammography to demonstrate 2 years of stability. Right: Negative. ASSESSMENT: BI-RADS BI-RADS 3 - Probably benign finding(s) - 12 month follow-up suggested RECOMMENDATION: 12 month diagnostic follow up This patient's information was entered into a reminder system with a target due date for their next mammogram. Electronically signed by: Gabriela Sorenson DO 10/19/2024 02:55 PM EDT
== END 2024-10-19 14:26 | disposition home or self-care (01) ==
LOC: HO.MAMMO 14:25
PROVIDERS: PCP Physician Assistant; Visit Provider Physician Assistant
DX: R92.1 Mammographic calcification found on diagnostic imaging of breast (principal)
CPT/HCPCS: 77062; 77066

== ENCOUNTER → 2024-10-19 14:30 | Outpatient (BNV) | payer BC, SELFPAY | PROVIDERS: PCP Physician Assistant; Visit Provider Internal Medicine | DX: R92.1 Mammographic calcification found on diagnostic imaging of breast (principal) | CPT/HCPCS: 77062; 77066 ==

== ENCOUNTER 2024-11-27 09:42 | Outpatient (AMB) | payer BC, SELFPAY ==
--- NOTE | 2024-11-27 10:09 | MHC.AM.SUB ---
Vital Signs 11/27/24 10:10 BP 122/80 Pulse 72 Pulse Source Pulse Oximeter Pulse Oximetry (%) 99 Intake Visit Reasons: MAT Allergies sumatriptan Adverse Reaction (Unknown, Verified 09/25/24 09:52) Nausea codeine Adverse Reaction (Verified 09/25/24 09:52) Nausea Medication List - Last Reconciled 11/27/24 by Donna Broussard BRAZER CONTROLLED ATMOSPHERIC FURNACE-C buprenorphine-naloxone 8-2 mg (Suboxone) 1 film sublingual DAILY 30 days buprenorphine-naloxone 8-2 mg (Suboxone) 1 film buccal DAILY 30 days buspirone 5 mg PO BID 30 days cetirizine 10 mg PO DAILY clonidine HCl 0.1 mg PO BEDTIME cyclobenzaprine 10 mg PO TID PRN docusate sodium 100 mg PO Q12H gabapentin 300 mg PO BEDTIME HPI Comments Details: A 54 year old patient who present for a follow up visit for MAT treatment. Reports feeling stable, denies active use of opioids, denies ETOH use. 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 Engages in conversation re: getting acustomed to son living on his own and looking forward to being a 2nd time grandmother. Review of Systems Const All systems reviewed & are unremarkable except as noted in HPI and below Physical Exam Psych Appearance: well kempt Mental Status: mental status grossly normal Speech and movement: Normal speech and movement present Affect: normal affect Attitude: cooperative Thought process: Normal thought process present Thought content: Normal thought content present Insight: Good insight present (Psych) Judgement: Good judgement present (Psych) [facility] Medical History Opioid use disorder Breast calcification, left Abdominal bloating Collapse, lung Pneumothorax Surgical History History of total knee arthroplasty History of pneumonectomy H/O breast biopsy History of tooth extraction History of lumpectomy of right breast Family History Mother Depression COPD (chronic obstructive pulmonary disease) Lung cancer Father No problems noted. 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 Reports keeping busy by working real time analyst and spends quality time with family members. Code(s): F11.90 - Opioid use, unspecified, uncomplicated Category: Medical Plan: The plan is to continue with buprenorphine/naloxone 8-2 mg, daily and follow up in two months or sooner if needed. Plan . Medications: Refilled buprenorphine-naloxone 8-2 mg (Suboxone) 1 film buccal DAILY 30 ea 1RF 30 days
[2024-11-27 10:10] VITALS: BP 122/80; PULSE 72; O2SAT 99
== END 2024-11-27 10:08 | disposition home or self-care (01) ==
LOC: HO.HCC 09:42
PROVIDERS: PCP Physician Assistant; Visit Provider Clinical Nurse Specialist Psychiatric/Mental Health
DX: F11.90 Opioid use, unspecified, uncomplicated (principal)
CPT/HCPCS: 99213

== ENCOUNTER 2025-01-24 09:46 | Outpatient (AMB) | payer BC, SELFPAY ==
[2025-01-24 09:50] VITALS: BP 120/80; PULSE 68; O2SAT 98; BMI 22.8
--- NOTE | 2025-01-24 09:50 | MHC.OFFVIS ---
Vital Signs 01/24/25 09:50 Height 5 ft 6 in Weight 141 lb BMI 22.8 BP 120/80 Pulse 68 Pulse Source Pulse Oximeter Pulse Oximetry (%) 98 Oxygen Delivery Method Room Air Intake Visit Reasons: MAT Allergies sumatriptan Adverse Reaction (Unknown, Verified 01/24/25 09:51) Nausea codeine Adverse Reaction (Verified 01/24/25 09:51) Nausea Medication List - Last Reconciled 01/24/25 by Donna Broussard NP-C buprenorphine-naloxone 8-2 mg (Suboxone) 1 film buccal DAILY 30 days buspirone 5 mg PO BID 30 days cetirizine 10 mg PO DAILY clonidine HCl 0.1 mg PO BEDTIME cyclobenzaprine 10 mg PO TID PRN docusate sodium 100 mg PO Q12H gabapentin 300 mg PO BEDTIME HPI Comments Details: A 54-year-old female presents for follow-up r/t DANIKA in sustained remission with buprenorphine-naloxone 8-2 mg daily. Denies use of opiates, alcohol, and other substances. 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 [facility] Medical History Opioid use disorder Breast calcification, left Abdominal bloating Collapse, lung Pneumothorax Surgical History History of total knee arthroplasty History of pneumonectomy H/O breast biopsy History of tooth extraction History of lumpectomy of right breast Family History Mother Depression COPD (chronic obstructive pulmonary disease) Lung cancer Father No problems noted. 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 Cognitive needs: No Hearing needs: No Vision needs: No Female Reproductive History Menstrual Age of Menarche: 13 Review of Systems Const All systems reviewed & are unremarkable except as noted in HPI and below Physical Exam Vital Signs: Last Vital Signs Pulse 68 01/24/25 09:50 BP 120/80 01/24/25 09:50 Pulse Ox 98 01/24/25 09:50 Oxygen Delivery Method Room Air 01/24/25 09:50 BMI result Body Mass Index 22.8 Const General: cooperative Assessment & Plan Assessment & Plan (1) Opioid use disorder in remission: Code(s): F11.91 - Opioid use, unspecified, in remission Category: Medical Plan The plan of care is to continue with buprenorphine-naloxone 8-2 mg daily and follow-up in 2 months or sooner if needed. Medications: Refilled buprenorphine-naloxone 8-2 mg (Suboxone) 1 film buccal DAILY 30 ea 1RF 30 days Patient Instructions: - Continue with buprenorphine-naloxone as prescribed. - follow-up in 2 months or sooner if needed. - Call with questions, concerns, or to report side effects/new onset of symptoms to [facility]. - the The patient verbalized understanding and agreed with plan of care. Coding Level of Care Code Est Pt Level 3 (72025) Diagnoses Opioid use disorder in remission F11.91
== END 2025-01-24 10:15 | disposition home or self-care (01) ==
PROVIDERS: PCP Physician Assistant; Visit Provider Clinical Nurse Specialist Psychiatric/Mental Health
DX: F11.91 Opioid use, unspecified, in remission (principal)
CPT/HCPCS: 99213

== ENCOUNTER 2025-03-26 10:16 | Outpatient (AMB) | payer BC, SELFPAY ==
--- NOTE | 2025-03-26 10:19 | MHC.OFFVIS ---
Vital Signs 03/26/25 10:23 Height 5 ft 6 in Weight 142 lb BMI 22.9 BP 110/72 Blood Pressure Location Rt brachial Position Sitting Pulse 75 Pulse Source Pulse Oximeter Pulse Oximetry (%) 99 Intake Visit Reasons: MAT Allergies sumatriptan Adverse Reaction (Unknown, Verified 03/26/25 10:24) Nausea codeine Adverse Reaction (Verified 03/26/25 10:24) Nausea HPI Comments Details: A 55-year-old female presents for a follow-up visit r/t DANIKA in sustained remission with buprenorphine-naloxone 8-2 mg daily. Denies use of opiates, alcohol, and other substances. Patient interested in receiving information regarding long acting injectables. [facility] Medical History Opioid use disorder Breast calcification, left Abdominal bloating Collapse, lung Pneumothorax Surgical History History of total knee arthroplasty History of pneumonectomy H/O breast biopsy History of tooth extraction History of lumpectomy of right breast Family History Mother Depression COPD (chronic obstructive pulmonary disease) Lung cancer Father No problems noted. 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 Education and brochures provided for Sublocade and Brixadi. Follow-up in 2 months or sooner if needed. Medications: Refilled buprenorphine-naloxone 8-2 mg (Suboxone) 1 film buccal DAILY 30 ea 1RF 30 days Patient Instructions: - Continue with buprenorphine-naloxone as prescribed. - Evaluate information re: deciding if interested in switching to [facility]. - Follow-up in 2 months or sooner if needed. - Call with questions, concerns, or to report side effects/new onset of symptoms to [facility] - The patient verbalized understanding and agreed with plan of care. Coding Level of Care Code Est Pt Level 3 (36531) Diagnoses Opioid use disorder in remission F11.91
[2025-03-26 10:23] VITALS: BP 110/72; PULSE 75; O2SAT 99; BMI 22.9
== END 2025-03-26 10:43 | disposition home or self-care (01) ==
LOC: HO.HCC 10:17
PROVIDERS: PCP Physician Assistant; Visit Provider Clinical Nurse Specialist Psychiatric/Mental Health
DX: F11.91 Opioid use, unspecified, in remission (principal)
CPT/HCPCS: 99213

== ENCOUNTER 2025-05-21 10:36 | Outpatient (AMB) | payer BC, SELFPAY ==
[2025-05-21 10:43] VITALS: BP 120/72; PULSE 92; O2SAT 98; BMI 22.9
--- NOTE | 2025-05-21 10:43 | A.OFFVISCC_ITS ---
Vital Signs 05/21/25 10:43 Height 5 ft 6 in Weight 142 lb BMI 22.9 BP 120/72 Blood Pressure Location Rt brachial Position Sitting Pulse 92 Pulse Source Pulse Oximeter Pulse Oximetry (%) 98 Oxygen Delivery Method Room Air Intake Visit Reasons: MAT Allergies sumatriptan Adverse Reaction (Unknown, Verified 05/21/25 10:44) Nausea codeine Adverse Reaction (Verified 05/21/25 10:44) Nausea HPI Comments Details: A 55-year-old female presents for a follow up visit r/t DANIKA in sustained remission with buprenorphine-naloxone 8-2 mg daily. Reports feeling stable and doing well with recovery process. Engages in conversation re: recently reconnected with sister after several years of no communication. Physical Exam Vital Signs: Last Vital Signs Pulse 92 05/21/25 10:43 BP 120/72 05/21/25 10:43 Pulse Ox 98 05/21/25 10:43 Oxygen Delivery Method Room Air 05/21/25 10:43 BMI result Body Mass Index 22.9 [facility] Medical History Opioid use disorder Breast calcification, left Abdominal bloating Collapse, lung Pneumothorax Surgical History History of total knee arthroplasty History of pneumonectomy H/O breast biopsy History of tooth extraction History of lumpectomy of right breast Family History Mother Depression COPD (chronic obstructive pulmonary disease) Lung cancer Father No problems noted. 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 Medications: Changed From buprenorphine-naloxone 8-2 mg (Suboxone) 1 film buccal DAILY 30 days 30 ea 1RF To buprenorphine-naloxone 8-2 mg (Suboxone) One film sublingually daily 1 film sublingual DAILY 30 ea 2RF 30 days Patient Instructions: - Continue with buprenorphine-naloxone as prescribed. - Follow-up in 3 months or sooner if needed. - Call with questions, concerns, or to report side effects/new onset of symptoms to [facility]. - The patient verbalized understanding and agreed with plan of care.
== END 2025-05-21 11:01 | disposition home or self-care (01) ==
LOC: HO.HCC 10:36
PROVIDERS: PCP Physician Assistant; Visit Provider Clinical Nurse Specialist Psychiatric/Mental Health
DX: F11.91 Opioid use, unspecified, in remission (principal)
CPT/HCPCS: 99213